=== PATIENT | female | born 1950 | race Asian ===

== ENCOUNTER 2020-12-25 12:31 | Outpatient (REF) | payer MEDICARE, SELFPAY ==
--- NOTE | ~2020-12-25 | MM_ITS ---
EXAMINATION: MM SCREENING DIGITAL BREAST TOMOSYNTHESIS, BILATERAL CLINICAL INFORMATION: Screening. Asymptomatic. The lifetime risk of breast cancer based on the Tyrer-Cuzick Model is 2.5%. COMPARISON: Mammography: October 03, 2019 and studies dating back to May 11, 2012 TECHNIQUE: Digital breast tomosynthesis is performed in both the craniocaudal and mediolateral oblique views along with computer-aided detection (CAD). Synthesized 2D images are generated from the tomosynthesis. Bilateral exaggerated craniocaudal views also performed. FINDINGS: There are scattered areas of fibroglandular density (ACR BI-RADS breast composition Category b). There are no significant masses, abnormal calcifications, or other abnormalities. MM/MM tomosynthesis screening BI IMPRESSION: There are no significant changes from prior study. ASSESSMENT: BI-RADS 1: Negative RECOMMENDATION: Routine annual mammography screening. This patient's information was entered into a reminder system with a target due date for their next mammogram.
== END 2020-12-25 12:32 | disposition home or self-care (01) ==
LOC: HO.MAMMO 12:31
PROVIDERS: PCP Internal Medicine; Visit Provider Internal Medicine
DX: Z12.31 Encounter for screening mammogram for malignant neoplasm of breast (principal)
CPT/HCPCS: 77063; 77067

== ENCOUNTER 2021-12-26 15:03 | Outpatient (REF) | payer MEDICARE, MEDICAID, SELFPAY ==
--- NOTE | ~2021-12-26 | MM_ITS ---
EXAMINATION: MM SCREENING DIGITAL BREAST TOMOSYNTHESIS, BILATERAL CLINICAL INFORMATION: Screening. Asymptomatic. The lifetime risk of breast cancer based on the Tyrer-Cuzick Model is 2%. COMPARISON: Mammography: 12/25/2020, 10/03/2019, 09/26/2018 TECHNIQUE: Digital breast tomosynthesis is performed in both the craniocaudal and mediolateral oblique views along with computer-aided detection (CAD). Synthesized 2D images are generated from the tomosynthesis. Additional bilateral MLO views are provided. FINDINGS: There are scattered areas of fibroglandular density (ACR BI-RADS breast composition Category b). There are no significant masses, abnormal calcifications, or other abnormalities. Parenchymal pattern is similar to prior studies. No developing density. No significant change. The axilla and skin contours are unremarkable. MM/MM tomosynthesis screening BI IMPRESSION: No mammographic evidence of malignancy. ASSESSMENT: BI-RADS 1: Negative RECOMMENDATION: Routine annual mammography screening. This patient's information was entered into a reminder system with a target due date for their next mammogram.
== END 2021-12-26 15:04 | disposition home or self-care (01) ==
LOC: HO.MAMMO 15:03
PROVIDERS: PCP Internal Medicine; Visit Provider Internal Medicine
DX: Z12.31 Encounter for screening mammogram for malignant neoplasm of breast (principal)
CPT/HCPCS: 77063; 77067

== ENCOUNTER 2023-01-13 08:21 | Outpatient (REF) | payer MEDICARE, MEDICAID, SELFPAY ==
--- NOTE | ~2023-01-13 | MM_ITS ---
EXAMINATION: MM SCREENING DIGITAL BREAST TOMOSYNTHESIS, BILATERAL CLINICAL INFORMATION: Screening. Asymptomatic. The lifetime risk of breast cancer based on the Tyrer-Cuzick Model is 2%. COMPARISON: Mammography: 12/26/2021, 12/25/2020, 10/03/2019 TECHNIQUE: Digital breast tomosynthesis is performed in both the craniocaudal and mediolateral oblique views along with computer-aided detection (CAD). Synthesized 2D images are generated from the tomosynthesis. FINDINGS: There are scattered areas of fibroglandular density (ACR BI-RADS breast composition Category b). There are no significant masses, abnormal calcifications, or other abnormalities. No architectural abnormality or developing density or significant change from prior studies. The axilla are unremarkable. MM/MM tomosynthesis screening BI IMPRESSION: No mammographic evidence of malignancy. ASSESSMENT: BI-RADS 1: Negative RECOMMENDATION: Routine annual mammography screening. This patient's information was entered into a reminder system with a target due date for their next mammogram.
== END 2023-01-13 08:22 | disposition home or self-care (01) ==
LOC: HO.MAMMO 08:21
PROVIDERS: PCP Internal Medicine; Visit Provider Internal Medicine
DX: Z12.31 Encounter for screening mammogram for malignant neoplasm of breast (principal)
CPT/HCPCS: 77063; 77067

== ENCOUNTER 2023-07-18 17:03 | Emergency (ER) | payer MEDICARE, MEDICAID, SELFPAY ==
--- NOTE | ~2023-07-18 | XR_ITS ---
EXAMINATION: XR CHEST, 2 VIEWS CLINICAL INFORMATION: Cough COMPARISON: 03/27/2010 TECHNIQUE: PA and lateral views of the chest were obtained. FINDINGS: Lungs are clear. No consolidation, pneumothorax, or pleural effusion. Cardiac and mediastinal contours are normal. Pulmonary vasculature is unremarkable. Trachea is midline. Status post right reverse total shoulder arthroplasty. No acute osseous findings. XR/XR chest 2V IMPRESSION: No acute cardiopulmonary findings.
--- NOTE | ~2023-07-18 | CT_ITS ---
EXAMINATION: CT ABDOMEN AND PELVIS WITH CONTRAST CLINICAL INFORMATION: Abdominal pain. COMPARISON: None available. TECHNIQUE: Multidetector volumetric images were obtained from the superior aspect of the liver through the pubic symphysis following administration 85 mL of Omnipaque 350 intravenous contrast. Sagittal and coronal reformatted images were obtained on the technologist's workstation. Oral contrast: No This CT examination was performed using dose optimization techniques as appropriate, variously including the following: *Automated exposure control *Adjustment of mA and/or kV according to patient size (this includes techniques or standardized protocols for targeted exams where dose is matched to indication/reason for exam; i.e. extremities or head) *Use of iterative reconstruction technique DLP: 344 mGy-cm FINDINGS: LUNG BASES: The visualized lung bases are unremarkable. LIVER, GALLBLADDER, AND BILIARY TREE: The liver is normal in size, shape, and attenuation. No focal hepatic lesion or biliary ductal dilatation is present. De Leon density in the gallbladder dependently, likely a gallstone. No gallbladder wall thickening or surrounding pericholecystic fluid. PANCREAS: Unremarkable. SPLEEN: Unremarkable. ADRENAL GLANDS: Unremarkable. KIDNEYS AND URETERS: There is a 2.8 cm fluid attenuation simple cyst in the left upper renal pole. No recommended imaging follow-up. The kidneys are normal in size, shape, and attenuation. No hydronephrosis, hydroureter, or calculi seen. No perinephric stranding. BLADDER: Unremarkable. GASTROINTESTINAL TRACT: Stomach, small bowel, and colon are normal in caliber. Mild colonic diverticulosis. No evidence of acute diverticulitis. No intraperitoneal free fluid or free air. Appendix is normal. ABDOMINAL WALL: No significant hernia is appreciated. LYMPH NODES: Normal. VASCULAR: Calcific atherosclerosis is present in the abdominal aorta and iliac arteries. No aneurysmal dilatation. PELVIC VISCERA: The uterus and adnexa are unremarkable. OSSEOUS STRUCTURES: Mild degenerative disc disease in the lower lumbar spine. Mild osteophytes in both hips and SI joints. The CT/CT abdomen pelvis w IV con IMPRESSION: 1. No acute intra-abdominal or intrapelvic abnormalities. 2. Cholelithiasis without evidence of acute cholecystitis. 3. Mild colonic diverticulosis without evidence of acute diverticulitis. Fleischner guidelines were followed.
--- NOTE | 2023-07-18 17:27 | ED.GENADULT ---
HPI - General Adult General Chief complaint: General Medical Stated complaint: kidney stones, dehydrated Time Seen by Provider: 07/18/23 17:58 Source: patient and family ( Daughter) Mode of arrival: ambulatory History of Present Illness HPI narrative: 72-year-old female who presents with her daughter with complaints of 2 weeks of feeling unwell with chills, decreased appetite, nausea and vomiting and had been seen at [facility] but then denied receive imaging studies and was discharged home. Related Data Previous Rx's Medication Instructions Recorded cefdinir 300 mg capsule 300 mg PO BID 7 days #14 caps 07/18/23 Allergies Allergy/AdvReac Type Severity Reaction Status Date / Time No Known Allergies Allergy Unverified 05/23/20 16:06 Review of Systems Review of Systems: Pertinent positives and negatives as stated in [facility] Past Medical History Source: nursing notes reviewed Medical History Diabetes mellitus, type 2 Social History Social History Smoked in Last 30 Days: No Use of substances other than those prescribed or required for medical reasons: No Advance Directives: Yes Advance Directives Information Provided: No Advance Directives on File: No Physical Exam ED Vital Signs: Vital Signs - 24 hr 07/18/23 17:28 07/18/23 18:11 07/18/23 20:00 Temperature 99.3 F Pulse Rate 80 76 79 Respiratory Rate 16 20 16 Blood Pressure 113/64 121/66 118/61 Pulse Oximetry 98 96 99 Oxygen Delivery Method Room Air Room Air Room Air BMI result Body Mass Index 23.2 VITAL SIGNS: Reviewed. GENERAL: Well developed, well nourished, in no acute distress. HEAD: Normocephalic/atraumatic EYES: PERRLA, EOMI EARS: Ext canals without abnormality, TMs non-bulging and non-erythematous NOSE: Nares patent bilateral OROPHARYNX: no oral lesions noted, posterior pharynx clear and non-erythematous without noted tonsillar enlargement/erythema/exudates NECK: Supple, no adenopathy LUNGS: Normal breath sounds. No adventitious sounds or accessory muscle use. SpO2<99> CARDIOVASCULAR: Regular rate and rhythm without noted murmurs ABDOMEN: Soft, mild tenderness to palpation on the right side, non-distended with bowel sounds. MUSCULOSKELETAL: No tenderness, deformities, or effusions noted on gross inspection. EXTREMITIES: No cyanosis, clubbing or edema. SKIN: Inspection of the skin reveals no rashes NEUROLOGIC: Alert and oriented x 4. Strength and sensation to light touch were grossly intact x 4. Course Course Course Narrative: RME performed by Kerrie Mcknight PA-C. Patient is a 72 year old assigned female at presenting to the emergency department feeling generally unwell with a sore throat, body aches, and gagging. Was seen 8 days ago at [facility] and was diagnosed with a kidney stone however, she left before they were officially seen at [facility]. Daughter in law at the bed side translating. States that the patient was actually told the next day by her PCP that she may have had a kidney stone as seen on lab work (?) and recommended she come to the ER but scheduled them for a follow up CT later this upcoming week. Labs and swabs ordered. Patient placed back in the waiting room pending room availability and results. Medications Administered Discontinued Medications Generic Name Dose Route Start Last Admin Trade Name Freq PRN Reason Stop Dose Admin Sodium Chloride 1,000 mls @ 999 mls/hr 07/18/23 19:30 07/18/23 21:12 Ns IV 07/18/23 20:30 Infused .Q1H1M GUY Infusion Piperacillin Sod/Tazobactam 50 mls @ 100 mls/hr 07/18/23 19:24 07/18/23 20:41 Sod 3.375 gm/ Sodium Chloride IV 07/18/23 19:53 Infused ONCE ONE Infusion Iohexol 100 ml 07/18/23 19:54 07/18/23 19:54 Iohexol 350 Mg/Ml 100 Ml Infus..Btl IV 07/18/23 19:55 85 ml ONCE ONE Administration Medical Decision Making Medical Decision Making MDM Narrative: 72-year-old female with history and clinical presentation, DDX: viral illness, UTI, renal colic, pyelonephritis. I reviewed all investigations and hematologic indices demonstrate a leukocytosis without left shift and a normocytic anemia without history or clinical findings of bleeding. There is no thrombocytopenia. Coagulation studies are all mildly elevated and of unclear significant as patient is not on any anticoagulation. Chemistry indices do not demonstrate an LANDON and there is no electrolyte or liver enzyme derangements other than a mildly elevated AST, alkaline phosphatase is noted to be elevated -548. unsure why high sensitivity troponin was ordered but it is detectable but patient has no complaints of chest pain. Urinalysis demonstrates wbc's as well as rbc's and CT scan is negative for acute intra-abdominal pathologies. Viral testing is negative for influenza/ RSV/ COVID. Rapid strep is negative. Chest x-ray not significant for infiltrate and otherwise my interpretation is in agreement with radiology's impression. EKG does not have any acute findings. My interpretation is that patient likely has a pyelonephritis and received initial antibiotics here in the emergency room and was discharged with remaining course. All results and findings were discussed with the patient and her daughter at bedside Differential Diagnosis Differential Diagnoses: The differential diagnosis associated with the presentation includes please see the discussion above Admission/Observation Consideration of admission/observation: Escalation of care including admission/observation considered please see the discussion above Lab Data MDM Lab Attestation statement: I reviewed the patient's lab results. please see the discussion above 07/18/23 17:52 07/18/23 17:52 Labs: Lab Results 07/18/23 07/18/23 07/18/23 Range/Units 17:52 18:26 21:36 WBC 10.9 H (4.8-10.8) X10*3/uL RBC 3.46 L (4.20-5.50) X10*6/uL Hgb 9.3 L (12.0-16.0) g/dl Hct 30.7 L (37.0-47.0) % MCV 88.7 (80.0-98.0) fL MCH 26.9 L (27.0-33.0) pg MCHC 30.3 L (31.0-35.0) g/dl RDW 13.3 (11.0-16.0) % Plt Count 276 (160-400) X10*3/uL MPV 11.3 (9.4-12.3) fL Immature Gran % (Auto) 1.0 H (0.0-0.4) % Neut % (Auto) 73.0 (45-73) % Lymph % (Auto) 11.3 L (20-40) % Hampton % (Auto) 10.2 (2-11) % Eos % (Auto) 4.0 (0-4) % Baso % (Auto) 0.5 (0-2) % Lymph # (Auto) 1.2 (1.2-4.9) X10*3/uL Hampton # (Auto) 1.1 (0.1-1.2) X10*3/uL Eos # (Auto) 0.4 (0.0-0.4) X10*3/uL Baso # (Auto) 0.1 (0.0-0.2) X10*3/uL Abs Immat Gran (auto) 0.11 H (0.00-0.03) X10*3/uL Absolute Neuts (auto) 7.9 (2.0-8.3) x10*3/uL Absolute Nucleated RBC 0.000 (0.0-0.012) X10*3/uL Nucleated RBC % (auto) 0.0 (0.0-0.2) /100WBC PT 14.1 H (11.1-13.3) SEC INR 1.2 H (0.9-1.1) APTT 41.2 H (26.0-36.4) SEC Sodium 134 L (135-145) mmol/L Potassium 4.2 (3.3-5.1) mmol/L Chloride 103 (96-108) mmol/L Carbon Dioxide 24 (22-29) mmol/L Anion Gap 11 L (12-20) BUN 15 (9-16) mg/dL Creatinine 0.88 (0.5-1.4) mg/dL Estim Creat Clear Calc 43.3 Estimated GFR > 60 Random Glucose 121 H (60-115) mg/dL Calcium 9.6 (8.4-10.2) mg/dL Magnesium 2.1 (1.6-2.6) mg/dL Total Bilirubin 0.4 (0.0-1.0) mg/dL AST 106 H (5-31) U/L ALT < 5 (0-31) U/L Alkaline Phosphatase 548 H (39-117) U/L Troponin I High Sens 4.3 (<3.5-17.0) ng/L Total Protein 7.7 (6.5-8.0) g/dL Albumin 3.2 L (3.5-5.0) g/dL Urine Color Yellow Urine Appearance Clear Urine pH 6.5 (5.0-9.0) Ur Specific Blanco >= 1.030 H (1.005-1.025) Urine Protein Negative (Neg-Trace) mg/dL Urine Glucose (UA) >=1000 H (Negative) mg/dL Urine Ketones Negative (Negative) mg/dL Urine Blood Trace H (Negative) Urine Nitrite Negative (Negative) Ur Leukocyte Esterase Small (1+) H (Negative) Urine RBC 3-5 H (0-2) /HPF Urine WBC 21-50 H (0-5) /HPF Ur Squamous Epith Cells 3-5 (0-2) /HPF Urine Bacteria None Seen (None Seen) Hyaline Casts 0-2 (0-2) /LPF Influenza Type A (PCR) NEGATIVE (Negative) Influenza Type B (PCR) NEGATIVE (Negative) RSV RNA Qual (PCR) NEGATIVE (Negative) SARS-CoV-2 RNA (RT-PCR) NEGATIVE (Negative) S. pyogenes GrpA KEYLA Negative (Negative) Independent Interpretation I performed an independent interpretation of an: EKG Interpretation: normal sinus rhythm, HR - 79, there is no STEMI, AL/ QRS /QTC is within normal limits. Radiology Impression Discussion of test interpretation with radiology: I have reviewed the radiologist's reading. Radiologist Impression: Please see the discussion above Chronic Conditions Patient?s care impacted by: Diabetes Critical Care Time Critical Care Time Critical Care Time: Yes Total Critical Care Time: 30 Attestation: I personally attest to this time spent taking care of the patient. Discharge Plan Discharge Clinical Impression: Pyelonephritis Patient Disposition: Home, Self-Care Instructions: Kidney Infection (ED) Additional Instructions: 1. Resume all home medications as prescribed. 2. Complete the entire course of antibiotics as prescribed. 3. Follow-up with your primary care doctor by calling the office tomorrow morning. Return to the ER for any worsening symptoms. Prescriptions: New cefdinir 300 mg capsule 300 mg PO BID 7 Days Qty: 14 0RF Referrals: Elizabeth Sterling MD [Primary Care Provider] -
[2023-07-18 17:28] VITALS: BP 113/64; PULSE 80; RESP 16; TEMP 37.4; O2SAT 98; BMI 23.2
--- NOTE | 2023-07-18 17:29 | ECG_ITS ---
Test Reason : FEELING UNWELL Blood Pressure : / mmHG Vent. Rate : 079 BPM Atrial Rate : 079 BPM P-R Int : 120 ms QRS Dur : 074 ms QT Int : 368 ms P-R-T Axes : 049 028 053 degrees QTc Int : 421 ms Normal sinus rhythm RSR' or QR pattern in V1 suggests right ventricular conduction delay Otherwise normal ECG When compared with ECG of 27-MAR-2010 06:52, QT has shortened ST no longer depressed in Inferior leads Lateral leads Referred By: Kerrie Mcknight Electronically Signed By:TRENA WILSON MD
[2023-07-18 18:01] LABS: MANUAL DIFF FLAG NO
--- OUTSIDE RECORDS SUMMARY | 2023-07-18 18:03 | XMS_ITS | Continuity of Care Document ---
Author Name Unknown Organization [facility] Adult Address [address] [place] [address]- Care Team Providers Care Laboratory Phlebotomist Name Role Phone Chio MUSE, Elizabeth Primary Care Physician Encounter [facility] Date(s): 08/23/22 - 09/22/22 [facility] [address] [place] [address]- Allergies, Adverse Reactions, Alerts No Known Allergies Immunizations Given and Recorded Vaccine Date Status Refusal Reason influenza virus vaccine, inactivated 07/15/22 Prem rded influenza virus vaccine, inactivated 07/09/21 Prem rded influenza virus vaccine, inactivated 1 06/24/18 Gi zeke influenza virus vaccine, inactivated 2 07/17/17 Gi zeke influenza virus vaccine, inactivated 06/07/17 Prem rded influenza virus vaccine, inactivated 3 06/22/16 Gi zeke influenza virus vaccine, inactivated 06/26/15 Give n influenza virus vaccine, inactivated 06/14/14 Give n influenza virus vaccine, inactivated 06/28/13 Give n influenza virus vaccine, inactivated 05/13/12 Give n SARS-CoV-2 mRNA ([id number]) vax 12/23/21 Recorded SARS-CoV-2 (COVID-19) Ad26 vaccine 12/14/20 Record ed Influenza Virus Vaccine (oldterm) 4 06/01/20 Recor ded Influenza Virus Vaccine (oldterm) 5 06/01/20 Recor ded Influenza Virus Vaccine (oldterm) 07/03/19 Recorde d pneumococcal 23-valent vaccine 03/01/18 Given pneumococcal 13-valent vaccine 12/15/16 Given tetanus/diphtheria/pertussis, acel(Tdap) 10/25/13 Given Diphth-Tetanus Toxoids Adsorbed(oldterm) 02/18/07 Given [facility] 3[facility] Note[facility] 4Result Comment: [facility] 5Result Comment: [facility] Medications acetaminophen 325 mg oral tablet 975 mg, 3, tablet, By Mouth, Every 8 hours, Refills 0, Maintenance, 08/26/21 12:18:00 EST, Partial fill upon patient request if the prescription is for a schedule II opioid drug. Start Date: 08/26/21 Status: Ordered aspirin 81 mg oral delayed release tablet 1 tablet = 81 mg, By Mouth, Daily, 0 Refills, Maintenance, 02/11/22 14:51:00 EDT, Partial fill uponpatient request if the prescription is for a schedule II opioid drug. Start Date: 02/11/22 Status: Ordered atorvastatin 40 mg oral tablet 1 tablet, By Mouth, Daily, # 90 Unknown, 1 Refills, Maintenance, 08/22/22 20:37:00 EST, [facility], 148.5, cm, 08/21/22 9:55:00 EST, Height, 55.5, kg, 08/26/21 10:10:00 EST, Dry Weight Start Date: 08/22/22 Status: Ordered docusate sodium 100 mg oral capsule 100 mg, 1, capsule, By Mouth, 2 times a day, Refills 0, Maintenance, 08/26/21 12:18:00 EST, Partialfill upon patient request if the prescription is for a schedule II opioid drug. Start Date: 08/26/21 Status: Ordered hydrochlorothiazide-lisinopril 12.5 mg-20 mg oral tablet 1 tablet, By Mouth, Daily, # 90 tablet, 1 Refills, Maintenance, 08/22/22 20:37:00 EST, [facility], 90, 1 tablet By Mouth Daily, 148.5, cm, 08/21/22 9:55:00 EST, Height, 55.5, kg, 08/26/21 10:10:00 EST, Dry Weight Start Date: 08/22/22 Status: Ordered Jardiance 25 mg oral tablet 1 tablet = 25 mg, By Mouth, Daily in AM, # 90 tablet, 3 Refills, Maintenance, 02/11/22 14:50:00 EDT, Tablet, [facility], Partial fill upon patient request if the prescription is fora schedule II opioid drug., 148.4, cm, 02/11/22 14:05:0... Start Date: 02/11/22 Status: Ordered One Touch Delica Lancets See Instructions, # 1 each, Refills 5, Tot. Refills 5, Maintenance, USE TO CHECK GLUCOSE ONCE HGRIVP58.9, 02/12/22 11:58:00 EDT, Supply, 148.4, cm, 02/11/22 14:05:00 EDT, Height, 55.5, kg, 08/26/21 10:10:00 EST, Dry Weight Start Date: 02/12/22 Status: Ordered One Touch Ultra 2 Glucose Meter See Instructions, # 1 each, Maintenance, USE TO CHECK GLUCOSE ONCE DAILY DX E11.9, 08/18/21 13:49:00 EST, Supply, 148.4, cm, 08/18/21 11:34:00 EST, Height Start Date: 08/18/21 Status: Ordered One Touch Ultra Test Strips See Instructions, # 100 each, Refills 5, Tot. Refills 5, Maintenance, USE TO CHECK GLUCOSE ONCE DAILY DX E11.9, 08/18/21 13:49:00 EST, Supply, 148.4, cm, 08/18/21 11:34:00 EST, Height Start Date: 08/18/21 Status: Ordered Vitamin D3 50,000 intl units oral capsule 1 capsule = 1,250 mcg, By Mouth, Every week, # 12 capsule, 0 Refills, Maintenance, 08/23/22 8:38:00EST, Capsule, [facility], Partial fill upon patient request if the prescription is for a schedule II opioid drug., 148.5, cm, 08/21/22 9:... Start Date: 08/23/22 Status: Ordered Problem List Condition Confirmation Course Effective Dates Status H ealth Status Informant Chronic abdominal pain Confirmed 1995 Active Chronic right shoulder pain Confirmed Active Diabetes as of 12/20/17 Confirmed Active Fibromyalgia syndrome Confirmed Active Headache Confirmed 1995 Active Heartburn Confirmed Active Hyperlipidemia 272.4 Confirmed Active HYPERTENSION Confirmed 2008 Active Osteopenia Confirmed 2019 Active Sleep disturbance Confirmed 1995 Active Social History Social History Type Response Smoking Status Never smoker entered on: 12/30/15 Sex Patient Care team information Care Team Personnel Name: Elizabeth Barroso MD Position: [facility] Primary Care Physician Member Role: PCP Address: Address: [address] [place] [address] [address] [place] [address]- [place] Care Team Related Persons Name: CAIO VELASQUEZ Address: [address] [place] [address] Name: DANIELA MADRIGAL Address: [address] [address] Name: CAIO DUNN Address: [address] [place] [address]
--- OUTSIDE RECORDS SUMMARY | 2023-07-18 18:03 | XMS_ITS | Continuity of Care Document ---
Author Name Unknown Organization [facility] ter Address [address] [place] [id number]- Care Team Providers Care Detail Maker And Fitter Name Role Phone Chio MUSE, Elizabeth Primary Care Physician Encounter [facility] Date(s): 08/18/19 - 08/18/[address] [address]- [facility] Attending Physician: Elizabeth Barroso MD Allergies, Adverse Reactions, Alerts Substance Reaction Severity Status NKA Active Immunizations Given and Recorded Vaccine Date Status Refusal Reason Influenza Virus Vaccine (oldterm) 07/03/19 Recorde d influenza virus vaccine, inactivated 1 06/24/18 Gi zeke influenza virus vaccine, inactivated 2 07/17/17 Gi zeke influenza virus vaccine, inactivated 3 06/22/16 Gi zeke influenza virus vaccine, inactivated 06/26/15 Give n influenza virus vaccine, inactivated 06/14/14 Give n influenza virus vaccine, inactivated 06/28/13 Give n influenza virus vaccine, inactivated 05/13/12 Give n pneumococcal 23-valent vaccine 03/01/18 Given pneumococcal 13-valent vaccine 12/15/16 Given tetanus/diphtheria/pertussis, acel(Tdap) 10/25/13 Given Diphth-Tetanus Toxoids Adsorbed(oldterm) 02/18/07 Given [facility] 3[facility] Medications aspirin 81 mg oral tablet 1 tablet = 81 mg, By Mouth, Daily, 0 Refills, Maintenance, 03/01/18 13:34:30 EDT Start Date: 03/01/18 Status: Ordered atorvastatin 40 mg oral tablet 1 tablet = 40 mg, By Mouth, Daily, # 30 tablet, 5 Refills, Maintenance, Tablet, Route to Pharmacy Electronically, [id number], [facility] Start Date: 02/17/19 Status: Ordered ibuprofen 800 mg oral tablet 800 mg, 1, tablet, By Mouth, 3 times a day, with food or milk, # 90 tablet, Refills 0, Tot. Refills0, Maintenance, 03/23/18 13:05:21 EDT, Route to Pharmacy Electronically, [id number], [facility] Start Date: 03/23/18 Stop Date: 04/22/18 Status: Ordered Zestoretic 12.5 mg-20 mg oral tablet 1 tablet, By Mouth, Daily, # 30 tablet, 5 Refills, Maintenance, 02/17/19 15:09:22 EDT, Tablet, 1 tablet By Mouth Daily,x30 days Start Date: 02/17/19 Stop Date: 08/16/19 Status: Ordered Problem List Condition Effective Dates Status Health Status Inform ant Chronic abdominal pain(Confirmed) 1995 Active Chronic right shoulder pain(Confirmed) Active Diabetes as of 12/20/17(Confirmed) Active Fibromyalgia syndrome(Confirmed) Active Headache(Confirmed) 1995 Active Hyperlipidemia 272.4(Confirmed) Active HYPERTENSION(Confirmed) 2008 Active Sleep disturbance(Confirmed) 1995 Active Social History Social History Type Response Smoking Status Never smoker entered on: 12/30/15 Sex
--- OUTSIDE RECORDS SUMMARY | 2023-07-18 18:03 | XMS_ITS | Continuity of Care Document ---
Author Name Unknown Organization [facility] ter Address [address] [place] [id number]- Care Team Providers Care Piano Case And Bench Assembler Name Role Phone Chio MUSE, Elizabeth Primary Care Physician [place] [facility] [place] - 08/28/[address] [address] Attending Physician: Yari Echevarria MD, V Referring Physician: Yari Echevarria MD, V Allergies, Adverse Reactions, Alerts Substance Reaction Severity Status NKA Active Immunizations Given and Recorded Vaccine Date Status Refusal Reason influenza virus vaccine, inactivated 07/09/21 Prem rded [...] virus vaccine, inactivated 05/13/12 Give n SARS-CoV-2 (COVID-19) Ad26 vaccine 12/14/20 Record ed [...] drug. Start Date: 08/26/21 Status: Ordered aspirin 325 mg oral delayed release tablet 325 mg, By Mouth, Daily, Refills 0, Maintenance, 08/26/21 12:18:00 EST, Partial fill upon patient request if the prescription is for a schedule II opioid drug. Start Date: 08/26/21 Status: Ordered atorvastatin 40 mg oral tablet 1 tablet = 40 mg, By Mouth, Daily, # 90 tablet, 3 Refills, Maintenance, 07/30/21 10:36:00 EST, Tablet, [facility], 148.4, cm, 07/30/21 10:29:00 EST, Height Start Date: 07/30/21 Status: Ordered docusate sodium 100 mg oral capsule 100 mg, 1, capsule, By Mouth, 2 times a day, Refills 0, Maintenance, 08/26/21 12:18:00 EST, Partialfill upon patient request if the prescription is for a schedule II opioid drug. Start Date: 08/26/21 Status: Ordered Jardiance 10 mg oral tablet 1 tablet = 10 mg, By Mouth, Daily in AM, # 30 tablet, 5 Refills, Maintenance, 08/18/21 12:00:00 EST, Tablet, [facility], Partial fill upon patient request if the prescription is fora schedule II opioid drug., 148.4, cm, 08/18/21 11:34:0... Start Date: 08/18/21 Status: Ordered NuLYTELY with Flavor Packs oral powder for reconstitution 240 mL, By Mouth, Every 10 minutes, Split prep method CAN SUBSTITUTE WITH ANY PEG 3350 SOLUTION AVAILABLE, # 1 each, 0 Refills, Acute 01/21/22 6:30:00 EDT, 01/20/22 17:00:00 EDT, REC Powder, [facility], test date 01/21/22, 240 mL By Mout... Start Date: 01/20/22 Stop Date: 01/21/22 Status: Ordered One Touch Ultra 2 Glucose [...] Start Date: 08/18/21 Status: Ordered One Touch UltraSoft Lancets See Instructions, # 100 each, Refills 5, Tot. Refills 5, Maintenance, USE TO CHECK GLUCOSE ONCE DAILY DX E11.9, 08/18/21 13:49:00 EST, Supply, 148.4, cm, 08/18/21 11:34:00 EST, Height Start Date: 08/18/21 Status: Ordered oxyCODONE 5 mg oral tablet 10 mg, 2, tablet, By Mouth, Every 4 hours, PRN, Refills 0, Tot. Refills 0, Maintenance, Pain , Severe, 08/26/21 12:18:00 EST, Partial fill upon patient request if the prescription is for a schedule II opioid drug. Start Date: 08/26/21 Status: Ordered oxyCODONE 5 mg oral tablet 5 mg, 1, tablet, By Mouth, Every 4 hours, PRN, Refills 0, Tot. Refills 0, Maintenance, Pain , Mild,08/26/21 12:18:00 EST, Partial fill upon patient request if the prescription is for a schedule II opioid drug. Start Date: 08/26/21 Status: Ordered Zestoretic 12.5 mg-20 mg oral tablet 1 tablet, By Mouth, Daily, # 90 tablet, 3 Refills, Maintenance, 07/30/21 10:36:00 EST, Tablet, [facility], 1 tablet By Mouth Daily, 148.4, cm, 07/30/21 10:29:00 EST, Height Start Date: 07/30/21 Status: Ordered Problem List Condition Effective Dates Status Health Status Inform ant Chronic abdominal pain(Confirmed) 1995 Active Chronic right shoulder pain(Confirmed) Active Diabetes as of 12/20/17(Confirmed) Active Fibromyalgia syndrome(Confirmed) Active Headache(Confirmed) 1995 Active Heartburn(Confirmed) Active Hyperlipidemia 272.4(Confirmed) Active HYPERTENSION(Confirmed) 2008 Active Osteopenia(Confirmed) 2020 Active Sleep disturbance(Confirmed) 1995 Active Social History Social History Type Response Smoking Status Never smoker entered on: 12/30/15 Sex
--- OUTSIDE RECORDS SUMMARY | 2023-07-18 18:04 | XMS_ITS | Continuity of Care Document ---
Author Name Unknown Organization [facility] Adult Address [address] [place] [address]- Care Team Providers Care Orchestra Teacher Name Role Phone Chio MUSE, [place] Primary Care Physician Encounter [facility] Date(s): 03/16/23 - 04/15/23 [facility] Adult [address] [place] [address]- Allergies, Adverse Reactions, Alerts No Known Allergies [...] vaccine, inactivated 05/13/12 Give n SARS-CoV-2 mRNA ([id number]) vax 12/23/21 Recorded SARS-CoV-2 (COVID-19) Ad26 vaccine [...] Daily, # 90 tablet, 1 Refills, Maintenance, 02/25/23 10:38:00 EDT, [facility], 148.5, cm, 12/14/22 15:04:00 EDT, Height, 55.5, kg, 08/26/21 10:10:00 EST, Dry Weight Start Date: 02/25/23 Status: Ordered docusate sodium 100 mg oral capsule 100 mg, 1, capsule, By Mouth, 2 times a day, Refills 0, Maintenance, 08/26/21 12:18:00 EST, Partialfill upon patient request if the prescription is for a schedule II opioid drug. Start Date: 08/26/21 Status: Ordered Fosamax 70 mg oral tablet 1 tablet = 70 mg, By Mouth, Every week, # 12 tablet, 1 Refills, Maintenance, 03/05/23 16:24:00 EDT,Tablet, [facility], Partial fill upon patient request if the prescription is for a schedule II opioid drug., 148.5, cm, 03/05/23 15:51:00... Start Date: 03/05/23 Status: Ordered hydrochlorothiazide-lisinopril 12.5 mg-20 mg oral tablet 1 tablet, By Mouth, Daily, # 90 tablet, 1 Refills, Maintenance, 02/25/23 10:39:00 EDT, [facility], 90, 1 tablet By Mouth Daily, 148.5, cm, 12/14/22 15:04:00 EDT, Height, 55.5, kg, 08/26/21 10:10:00 EST, Dry Weight Start Date: 02/25/23 Status: Ordered Jardiance 25 mg oral tablet 1 tablet, By Mouth, Daily in AM, # 90 tablet, 3 Refills, Maintenance, 02/25/23 10:39:00 EDT, [facility], 148.5, cm, 12/14/22 15:04:00 EDT, Height, 55.5, kg, 08/26/21 10:10:00 EST, Dry Weight Start Date: 02/25/23 Status: Ordered One Touch Delica Lancets See Instructions, # 1 each, Refills 5, Tot. Refills 5, Maintenance, USE TO CHECK GLUCOSE ONCE [id number], 02/12/22 11:58:00 EDT, Supply, 148.4, cm, 02/11/22 [...] Start Date: 08/18/21 Status: Ordered Vitamin D3 1000 intl units oral capsule 1 capsule = 25 mcg, By Mouth, Daily, # 100 capsule, 1 Refills, Maintenance, 11/24/22 17:43:00 EDT, Capsule, [facility], Partial fill upon patient request if the prescription is for a schedule II opioid drug., 148.5, cm, 11/24/22 16:34:00... Start Date: 11/24/22 Status: Ordered Problem List Condition Confirmation Course Effective Dates Status H ealth Status Informant Chronic abdominal pain Confirmed 1995 Active Chronic right shoulder pain Confirmed Active Diabetes as of 12/20/17 Confirmed Active Fibromyalgia syndrome Confirmed Active Headache Confirmed 1995 Active Heartburn Confirmed Active Hyperlipidemia 272.4 Confirmed Active HYPERTENSION Confirmed 2008 Active Osteopenia Confirmed 2019 Active Osteoporosis Confirmed Active Sleep disturbance Confirmed 1995 Active Social History Social History Type Response Smoking Status Never smoker entered on: 12/30/15 Sex Patient Care team information Care Team Personnel Name: Elizabeth Barroso MD Position: [facility] Physician - Primary Care Member Role: PCP [facility] [address] [place] [address]- Care Team Related Persons Name: CAIO VELASQUEZ Address: home [address] [place] [address] Name: DANIELA MADRIGAL Address: [address] [address] Name: CAIO DUNN Address: home [address] [place] [address]
--- OUTSIDE RECORDS SUMMARY | 2023-07-18 18:04 | XMS_ITS | Continuity of Care Document ---
Author Name Unknown Organization [facility] ter Address [address] [place] [address]- Care Team Providers Care General Education Professor Name Role Phone Chio MUSE, Elizabeth Primary Care Physician [place] [facility] [place] - 08/26/[address] [address]- Discharge Disposition: A-D/C Home Attending Physician: Yari Echevarria MD, V Admitting Physician: Yari Echevarria MD, V Referring Physician: [...] opioid drug. Start Date: 08/26/21 Status: Ordered HYDROmorphone Inj (PACU ONLY) 0.2 mg, Injection, IV Push Slowly, Every 5 minutes, up to a maximum of 2 mg, Hold for: RR less than8 OR Sedation Scale of C, PRN for Pain , Severe, Routine, 08/26/21 12:08:00 EST Start Date: 08/26/21 Stop Date: 09/02/21 Status: Ordered Jardiance 10 mg oral tablet [...] Hyperlipidemia 272.4(Confirmed) Active HYPERTENSION(Confirmed) 2008 Active Osteopenia(Confirmed) 2019 Active Sleep disturbance(Confirmed) 1995 Active Results Radiology Reports * Exam Date Time Procedure Performing Provider Status 08/26/21 12:51 PM Shoulder 1 View Right Therese Morris; Ryan (Verified) Notes: (Shoulder 1 View Right) Reason For Exam: S/p Right reverse total shoulder arthroplasty;Other: RESULT: Shoulder 1 View Right Shoulder 1 View Right, 1 views HISTORY: Right reverse total shoulder arthroplasty. COMPARISON: Radiograph 09/11/2017. FINDINGS: No acute osseous abnormality. No aggressive radiolucent or sclerotic lesions. Reverse right total shoulder arthroplasty. Overlapping of the humeral and glenoid components. No hardware fracture or periprosthetic loosening. Partially visualized right lung is clear. IMPRESSION: Overlapping of the glenoid and humeral components of reversed right total shoulder arthroplasty in this single projection . No hardware fracture or periprosthetic loosening. Consider scapular/axial projections to further evaluate positioning. I have personally reviewed the images and I agree with this report. WSN: [id number] Ordering Physician: Yari Echevarria V Dictated By: Chris Kay MD Dictated Date/Time: 08/26/21 1:37 pm Reviewed By: Dannie Briscoe MD Signed By: Dannie Briscoe MD Signed Date/Time: 08/26/21 1:42 pm Transcribed By: MYRA Transcribed Date/Time: 08/26/21 12:57 pm Vital Signs Most recent to oldest [Reference Range]: 1 2 3 Height 148.4 cm (08/26/21 10:10 AM) 148.4 cm (08/21/21 12:23 PM) Weight 55.5 kg (08/26/21 10:10 AM) 55.8 kg (08/21/21 12:23 PM) Oxygen Saturation [94-100 %] 99 % (08/26/21 1:45 PM) 99 % (08/26/21 1:30 PM) 99 % (08/26/21 1:15 PM) Pulse Rate [55-90 bpm] 68 bpm (08/26/21 10:10 AM) Body Mass Index [18.5-24.99] 25.2 *H* (08/26/21 10:10 AM) 25.34 *H* (08/21/21 12:23 PM) Blood Pressure [90-138/55-84 mm Hg] 117/57mm Hg (08/26/21 1:45 PM) 109/48mm Hg (08/26/21 1:30 PM) 107/46mm Hg (08/26/21 1:15 PM) Respiratory Rate [16-30 br/min] 15 br/min *L* (08/26/21 1:50 PM) 14 br/min *L* (08/26/21 1:30 PM) 15 br/min *L* (08/26/21 1:15 PM) Temperature [96.8-100.4 DegF] 97.2 DegF (08/26/21 1:45 PM) 97.1 DegF (08/26/21 12:15 PM) 99.2 DegF (08/26/21 10:10 AM) Liters per Minute 4 L/min (08/26/21 12:30 PM) 4 L/min (08/26/21 12:15 PM) 2 L/min (08/26/21 10:30 AM) Mode of Delivery (Oxygen) Room air (08/26/21 1:45 PM) Room air (08/26/21 12:45 PM) Simple face mask (08/26/21 12:30 PM) Blood pressure sites Arm, left (08/26/21 1:45 PM) Arm, left (08/26/21 1:30 PM) Arm, left (08/26/21 1:15 PM) Temperature Route Temporal (08/26/21 1:45 PM) Temporal (08/26/21 12:15 PM) Temporal (08/26/21 10:10 AM) Dry Weight 55.5 kg (08/26/21 10:10 AM) 55.8 kg (08/21/21 12:23 PM) Weight Obtained Via Standing scale (08/26/21 10:10 AM) Patient/family stated (08/21/21 12:23 PM) Dry Weight Obtained Via Standing scale (08/26/21 10:10 AM) Social History Social History Type Response Smoking Status Never smoker entered on: 12/30/15 Sex
--- OUTSIDE RECORDS SUMMARY | 2023-07-18 18:04 | XMS_ITS | Continuity of Care Document ---
Author Name Unknown Organization [facility] Address [address] [place] [address]- Care Team Providers Care Combination Machine Tender Name Role Phone Elizabeth Barroso MD Primary Care Physician [place] [facility] [place] 08[place]28/22 [facility] [address] [place] [address]- Encounter Diagnosis Well adult exam(Discharge Diagnosis) - 08/21/22 Diabetes as of 12/20/17(Discharge Diagnosis) - 08/21/22 HYPERTENSION(Discharge Diagnosis) - 08/21/22 Hyperlipidemia 272.4(Discharge Diagnosis) - 08/21/22 Osteopenia(Discharge Diagnosis) - 08/21/22 Attending Physician: Elizabeth Barroso MD Allergies, Adverse Reactions, Alerts No Known Allergies Immunizations Given and Recorded Vaccine Date Status Refusal Reason influenza virus vaccine, inactivated 07/15/22 Prem rded influenza virus vaccine, inactivated 07/09/21 Prem rded influenza virus vaccine, inactivated 1 06/24/18 Gi zeke influenza virus vaccine, inactivated 2 07/17/17 Gi zeke influenza virus vaccine, inactivated 06/07/17 Rpem rded influenza virus vaccine, inactivated 3 06/22/16 Gi zeke influenza virus vaccine, inactivated 06/26/15 Give n influenza virus vaccine, inactivated 06/14/14 Give n influenza virus vaccine, inactivated 06/28/13 Give n influenza virus vaccine, inactivated 05/13/12 Give n SARS-CoV-2 mRNA (juvhboz-[id number]) vax 12/23/21 Recorded SARS-CoV-2 (COVID-19) Ad26 vaccine [...] 5, Maintenance, USE TO CHECK GLUCOSE ONCE [id number], 02/12/22 11:58:00 EDT, Supply, 148.4, cm, 02/11/22 [...] 2019 Active Sleep disturbance Confirmed 1995 Active Diagnosis Diagnosis Type Effective Dates Health Status Clinical Service Informant Well adult exam Discharge Diagnosis 08/21/22 Diabetes as of 12/20/17 Discharge Diagnosis 08/21/22 HYPERTENSION Discharge Diagnosis 08/21/22 Hyperlipidemia 272.4 Discharge Diagnosis 08/21/22 Osteopenia Discharge Diagnosis 08/21/22 Vital Signs Most recent to oldest [Reference Range]: 1 Height 148.5 cm (08/21/22 9:55 AM) Weight 54.7 kg (08/21/22 9:55 AM) Oxygen Saturation [94-100 %] 99 % (08/21/22 9:55 AM) Pulse Rate [55-90 bpm] 68 bpm (08/21/22 9:55 AM) Body Mass Index [18.5-24.99 kg/m2] 24.8 kg/m2 (08/21/22 9:55 AM) Blood Pressure [90-138/55-84 mm Hg] 102/ 69mm Hg (08/21/22 9:55 AM) Temperature [96.8-100.4 DegF] 97.5 DegF (08/21/22 9:55 AM) Mode of Delivery (Oxygen) Room air (08/21/22 9:55 AM) Blood pressure sites Arm, left (08/21/22 9:55 AM) Temperature Route Oral (08/21/22 9:55 AM) Social History Social History Type Response Smoking Status Never smoker entered on: 12/30/15 Sex Note * Kiana Shields: PERFORM, SIGN, VERIFY Event Display: Patient Education/Instruction Authored Date: [id number] [facility] *[facility] [place] [facility] Clinical Summary Name MANRON Age 71 Years 1950 PCP Elizabeth Barroso MD PCP Visit Date 08/21/2022 09:41:00 Additional Instructions: Scheduled Appointments?? Future Appointments ?No Future Appointments Scheduled Follow-Up Instructions ?? With: Address: When: Elizabeth Barroso MD Within 1 year With: Address: When: Ez Barroso MDlis Within 6 months Diagnosis Other specified disorders of bone density and structure, unspecified site; Type 2 diabetes mellituswithout complications; Encounter for general adult medical examination without abnormal findings; Hyperlipidemia, unspecified; Essential (primary) hypertension Medications: Please continue your medications until treatment is completed or stopped by your provider. Discuss any questions related to medications with your provider. Medications to Continue with No Changes These medications were not printed or sent to your pharmacy Acetaminophen (acetaminophen 325 mg oral tablet) 3 tab(s) Oral every 8 hours. Next Dose: Aspirin (aspirin 81 mg oral delayed release tablet) 1 tab(s) Oral Daily. Next Dose: Atorvastatin (atorvastatin 40 mg oral tablet) 1 tab(s) Oral Daily. Refills: 3. Next Dose: Docusate (docusate sodium 100 mg oral capsule) 1 capsule Oral twice a day. Next Dose: Durable Medical Equipment (One Touch Delica Lancets) USE TO CHECK GLUCOSE ONCE DAILY E11.9. Refills: 5. Next Dose: Durable Medical Equipment (One Touch Ultra 2 Glucose Meter) USE TO CHECK GLUCOSE ONCE DAILY DX E11.9. Refills: 0. Next Dose: Durable Medical Equipment (One Touch Ultra Test Strips) USE TO CHECK GLUCOSE ONCE DAILY DX E11.9. Refills: 5. Next Dose: empagliflozin (Jardiance 25 mg oral tablet) 1 tab(s) Oral Daily in the morning. Refills: 3. Next Dose: Hydrochlorothiazide-Lisinopril (Zestoretic 12.5 mg-20 mg oral tablet) 1 tab(s) Oral Daily. Refills:3. Next Dose: Allergy Info:?? NKA Medications Given This Visit Future Orders ?Cholesterol Total? Order Date:08/21/22?- Complete on or after?08/21/22 ?Direct LDL? Order Date:08/21/22?- Complete on or after?08/21/22 ?HDL Cholesterol? Order Date:08/21/22?- Complete on or after?08/21/22 ?ALT? Order Date:08/21/22?- Complete on or after?08/21/22 ?Vitamin D 25 Hydroxy Level? Order Date:08/21/22?- Complete on or after?08/21/22 ?Renal Panel? Order Date:08/21/22?- Complete on or after?08/21/22 ?Dexa Bone Density (Axial)? Order Date:08/21/22?- Complete on or after?08/21/22 Vital Signs Height 148.5 cm Weight 54.7 kg BMI 24.8 kg/m2 Blood Pressure 102 mm Hg/69 mm Hg Temperature 97.5 DegF Pulse Rate 68 bpm Respiratory Rate 02 Sat Mode of Delivery 99 %/Room air You can now view a summary of your hospital visit from the comfort of your home through a free online portal called [employer]. [employer] is a website that allows you to securely view your medical information including discharge summary, medications and follow-up visits. ??You can alsosend a secure electronic message to your doctor???s office to request appointments, renew medications or just ask a question. You can enroll at [email or web address] or register during your next office visit. Disclaimer:?? The information provided is of a general nature and is intended to be used in conjunction with the recommendations and advice of your health care practitioner. ??Every effort has been made to ensure that the information provided is accurate and complete at the time it is provided to you however, as your needs change, or, as new ??information becomes available, different or additional instructions may be required. If you have questions, please consult with your primary care provider or pharmacist, as appropriate. ??This information is not intended to serve as substitution for assessment and evaluation by a qualified health care provider. If you do not have a primary care provider, you may find a [facility] provider by calling [facility] at [phone]. For information about the plan of care including goals and instructions for your diagnosis, please see the patient education orders section of this document. Patient Education Materials?? The content of this educational material or handout may have been modified, supplemented, or adapted from its original content and format to support your individualized medical care. Prevention Guidelines, Women Ages 65 and Older Screening tests and vaccines are an important part of managing your health. Health counseling is essential, too. Below are guidelines for these, for women ages 65 and older. Talk with your healthcareprovider to make sure you???re up to date on what you need. Screening Who needs it How often Type 2 diabetes or prediabetes All adults beginning at age 45 and adults without symptoms at any age who are overweight or obese and have 1 or more additional risk factors for diabetes At least every 3 years Alcohol misuse All women in this age group At routine exams Blood pressure All women in this age group Every 2 years if your blood pressure is less than 120/80 mm Hg; yearly if your systolic blood pressure is 120 to 139 mm Hg, or your diastolic blood pressure reading is 80 to 89 mm Hg Breast cancer All women in this age group Yearly mammogram and clinical breast exam1 Cervical cancer Only women who had abnormal screening results before age 65 Talk with your healthcare provider Chlamydia Women at increased risk for infection At routine exams Colorectal cancer All women in this age group1 Flexible sigmoidoscopy every 5 years, or colonoscopy every 10 years, or double- contrast barium enema every 5 years; yearly fecal occult blood test or fecal immunochemical test; or a stool DNA test asoften as your healthcare provider advises; talk with your healthcare provider about which tests arebest for you Depression All women in this age group At routine exams Gonorrhea Sexually active women at increased risk for infection At routine exams Hepatitis C Anyone at increased risk; 1 time for those born between 1945 and 1964 At routine exams High cholesterol or triglycerides All women in this age group who are at risk for coronary artery disease At least every 5 years HIV Women at increased risk for infection ??? talk with your healthcare provider At routine exams Lung cancer Adults age 55 to 80 who have smoked Yearly screening in smokers with 30 pack-year history of smoking or who quit within 15 years Obesity All women in this age group At routine exams Osteoporosis All women in this age group Bone density test at age 65, then follow-up as advised by your healthcare provider Syphilis Women at increased risk for infection ??? talk with your healthcare provider At routine exams Thyroid-Stimulating Hormone (TSH) All women in this age group Every 5 years Tuberculosis Women at increased risk for infection ??? talk with your healthcare provider Ask your healthcare provider Vision All women in this age group Every 1 to 2 years; if you have a chronic health condition, ask your healthcare provider if you need exams more often Vaccine Who needs it How often Chickenpox (varicella) All women in this age group who have no record of this infection or vaccine 2 doses; second dose should be given at least 4 weeks after the first dose Hepatitis A Women at increased risk for infection ??? talk with your healthcare provider 2 doses given 6 months apart Hepatitis B Women at increased risk for infection ??? talk with your healthcare provider 3 doses over 6 months; second dose should be given 1 month after the first dose; the third dose should be given at least 2 months after the second dose and at least 4 months after the first dose Haemophilus influenza??Type B (HIB) Women at increased risk for infection ??? talk with your healthcare provider 1 to 3 doses Influenza (flu) All women in this age group Once a year Pneumococcal??conjugate vaccine (PCV13)??and pneumococcal polysaccharide??vaccine (PPSV23) All women in this age group 1 dose of each vaccine Tetanus/diphtheria/pertussis (Td/Tdap) booster All women in this age group Td every 10 years, or a one-time dose of Tdap instead of a Td booster after age 18, then Td every 10 years Zoster All women in this age group 1 dose Counseling Who needs it How often Diet and exercise Women who are overweight or obese When diagnosed, and then at routine exams Fall prevention (exercise and vitamin D supplements) All women in this age group At routine exams Sexually transmitted infection prevention Women at increased risk for infection ??? talk with your healthcare provider At routine exams Use of daily aspirin Women ages 55 and up in this age group who are at risk for cardiovascular health problems such as stroke When your risk is known Use of tobacco and the health effects it can cause All women in this age group Every exam 1[employer] ?? [phone] [employer] [place] [address]. All rights reserved. This information is not intended as a substitute for professional medical care. Always follow your healthcare professional's instructions. Patient Care team information Care Team Personnel Name: Elizabeth Barroso MD Position: [facility] Primary Care Physician Member Role: PCP Address: Address: [address] [place] [address] [address] [place] [address]- Care Team Related Persons Name: CAIO VELASQUEZ Address: home [address] [place], [place] Name: DANIELA MADRIGAL Address: [address] Name: CAIO DUNN Address: home [address] [place], [place]
--- OUTSIDE RECORDS SUMMARY | 2023-07-18 18:04 | XMS_ITS | Continuity of Care Document ---
Author Name Unknown Organization [facility] Address [address] [place] [address]- Care Team Providers Care Ear Nose Throat Surgeon Name Role Phone Chio MUSE, [place] Primary Care Physician [facility]counter [facility] Date(s): 10[facility]21 - 11/02/21 [facility] [address] [place] [address]- Allergies, Adverse Reactions, Alerts No Known Allergies [...] Health Status Inform ant Chronic abdominal pain(Confirmed) 1996 Active Chronic right shoulder pain(Confirmed) Active Diabetes as of 12/20/17(Confirmed) Active Fibromyalgia syndrome(Confirmed) Active Headache(Confirmed) 1995 Active Heartburn(Confirmed) Active Hyperlipidemia 272.4(Confirmed) Active HYPERTENSION(Confirmed) 2008 Active Osteopenia(Confirmed) 2019 Active Sleep disturbance(Confirmed) 1995 Active Social History Social History Type Response Smoking Status Never smoker entered on: 12/30/15 Sex
--- OUTSIDE RECORDS SUMMARY | 2023-07-18 18:04 | XMS_ITS | Continuity of Care Document ---
Author Name Unknown Organization [facility] Address [address] [place] [address]- Care Team Providers Care Flasher Adjuster Name Role Phone Chio MUSE, Elizabeth Primary Care Physician Encounter [facility] Date(s): 11/24/22 - 12/01/22 [facility] [address] [place] [address]- Encounter Diagnosis Osteoporosis(Discharge Diagnosis) - 11/24/22 Osteopenia(Discharge Diagnosis) - 11/24/22 Attending Physician: Chio MUSE, Elizabeth Allergies, Adverse Reactions, Alerts No Known Allergies [...] vaccine, inactivated 05/13/12 Give n SARS-CoV-2 mRNA (yvixtvk-xizf-lpgvx) vax 12/23/21 Recorded SARS-CoV-2 (COVID-19) Ad26 vaccine [...] week, # 12 tablet, 1 Refills, Maintenance, 11/24/22 17:43:00 EDT,Tablet, [facility], Partial fill upon patient request if the prescription is for a schedule II opioid drug., 148.5, cm, 11/24/22 16:34:00... Start Date: 11/24/22 Status: Ordered hydrochlorothiazide-lisinopril 12.5 mg-20 mg oral [...] 5, Maintenance, USE TO CHECK GLUCOSE ONCE [id number], 02/12/22 11:58:00 EDT, Supply, 148.4, cm, 02/11/22 [...] Confirmed Active Sleep disturbance Confirmed 1995 Active Diagnosis Diagnosis Type Effective Dates Health Status Cl inical Service Informant Osteoporosis Discharge Diagnosis 11/24/22 Osteopenia Discharge Diagnosis 11/24/22 Vital Signs Most recent to oldest [Reference Range]: 1 Height 148.5 cm (11/24/22 4:34 PM) Social History Social History Type Response Smoking Status Never smoker entered on: 12/30/15 Sex Patient Care team information Care Team Personnel Name: Chio MUSE, Elizabeth Position: [facility] Primary Care Physician Member Role: PCP Address: Address: [address] [place] [address] [address] [place] [address]- Care Team Related Persons Name: CAIO VELASQUEZ Address: home [address] [place] [address] Name: DANIELA MADRIGAL Address: [address] Name: CAIO DUNN Address: home [address] [place], [place]
--- OUTSIDE RECORDS SUMMARY | 2023-07-18 18:04 | XMS_ITS | Continuity of Care Document ---
Author Name Unknown Organization [facility] Adult Address [address] [place] [address]- Care Team Providers Care Dot Compliance Manager Name Role Phone Chio MUSE, Elizabeth Primary Care Physician [facility]counter [facility] Date(s): 08/18/21 - 08/25/21 [facility] [address] [place] [address]- Encounter Diagnosis Chronic right shoulder pain(Discharge Diagnosis) - 08/18/21 HYPERTENSION(Discharge Diagnosis) - 08/18/21 Diabetes as of 12/20/17(Discharge Diagnosis) - 08/18/21 Attending Physician: Chio MUSE, Elizabeth Referring Physician: Yari Echevarria MD, V Allergies, [...] 4Result Comment: S&S 5Result Comment: S&S Medications aspirin 81 mg oral tablet 1 [...] EST, Height Start Date: 07/30/21 Status: Ordered Jardiance 10 mg oral tablet [...] EST, Height Start Date: 08/18/21 Status: Ordered Tylenol 8 HR Arthritis Pain 650 mg oral tablet, extended release 1 tablet = 650 mg, By Mouth, Every 8 hours, PRN Pain , Moderate, # 100 tablet, 0 Refills, Maintenance, 07/30/21 10:31:00 EST, ER Tablet, [facility], Partial fill upon patient request if the prescription is for a schedule II opioid drug.,... Start Date: 07/30/21 Status: Ordered Zestoretic 12.5 mg-20 mg oral [...] Osteopenia(Confirmed) 2019 Active Sleep disturbance(Confirmed) 1995 Active Diagnosis Diagnosis Type Effective Dates Health Status Clinical Service Informant Chronic right shoulder pain Discharge Diagnosis 08/18/21 HYPERTENSION Discharge Diagnosis 08/18/21 Diabetes as of 12/20/17 Discharge Diagnosis 08/18/21 Vital Signs Most recent to oldest [Reference Range]: 1 Height 148.4 cm (08/18/21 11:34 AM) Weight 55.8 kg (08/18/21 11:34 AM) Oxygen Saturation [94-100 %] 99 % (08/18/21 11:34 AM) Pulse Rate [55-90 bpm] 77 bpm (08/18/21 11:34 AM) Body Mass Index [18.5-24.99] 25.34 *H* (08/18/21 11:34 AM) Blood Pressure [90-138/55-84 mm Hg] 128/ 70mm Hg (08/18/21 11:34 AM) Temperature [96.8-100.4 DegF] 98.1 DegF (08/18/21 11:34 AM) Mode of Delivery (Oxygen) Room air (08/18/21 11:34 AM) Blood pressure sites Arm, left (08/18/21 11:34 AM) Temperature Route Oral (08/18/21 11:34 AM) Social History Social History Type Response Smoking Status Never smoker entered on: 12/30/15 Sex
--- OUTSIDE RECORDS SUMMARY | 2023-07-18 18:04 | XMS_ITS | Continuity of Care Document ---
Author Name Unknown Organization [facility] Adult Address [address] [place] [address]- Care Team Providers Care Ultimate Hoops Scoreboard Operator Name Role Phone Chio MUSE, [place] Primary Care Physician [facility] Date(s): 10/30/22 - 11/29/22 [facility] Adult [address] [place] [address]- Allergies, Adverse Reactions, Alerts No Known Allergies [...] vaccine, inactivated 05/13/12 Give n SARS-CoV-2 mRNA (cgygosv-rsmd-mclip) vax 12/23/21 Recorded SARS-CoV-2 (COVID-19) Ad26 vaccine [...] 5, Maintenance, USE TO CHECK GLUCOSE ONCE [id number], 02/12/22 11:58:00 EDT, Supply, 148.4, cm, 02/11/22 [...] Team Personnel Name: Elizabeth Barroso MD Position: [facility] Primary Care Physician Member Role: PCP Address: Address: [address] [place] [address] [address] [place] [address]- Care Team Related Persons Name: CAIO VELASQUEZ Address: home [address] [place] [address] Name: DANIELA MADRIGAL Address: [address] [address] Name: CAIO DUNN Address: [address] [place] [address]
--- OUTSIDE RECORDS SUMMARY | 2023-07-18 18:04 | XMS_ITS | Continuity of Care Document ---
Author Name Unknown Organization [facility] Address [address] [place] [address]- Care Team Providers Care Medical Technologist Chief Name Role Phone Chio MUSE, [place] Primary Care Physician Encounter [facility] Date(s): 12/30/21 - 01/29/22 [facility] [address] [address] Attending Physician: Admjoe, Martine Admitting Physician: AdmtrMartine Referring Physician: Admtr, Ar8 Allergies, Adverse Reactions, Alerts No Known Allergies [...] 08/18/21 11:34:0... Start Date: 08/18/21 Status: Ordered One Touch Ultra 2 Glucose [...]
--- OUTSIDE RECORDS SUMMARY | 2023-07-18 18:04 | XMS_ITS | Continuity of Care Document ---
Author Name Unknown Organization [facility] Address [address] [place] [address]- Care Team Providers Care Baby Formula Worker Name Role Phone Chio MUSE, [place] Primary Care Physician [facility]counter [facility] Date(s): 09/02/20 - 10/02/20 [facility] [address] [place] [address]- Allergies, Adverse Reactions, Alerts Substance Reaction Severity Status NKA Active Immunizations Given and Recorded Vaccine Date Status Refusal Reason Influenza Virus Vaccine (oldterm) 1 06/01/20 Recor ded Influenza Virus Vaccine (oldterm) 2 06/01/20 Recor ded Influenza Virus Vaccine (oldterm) 07/03/19 Recorde d influenza virus vaccine, inactivated 3 06/24/18 Gi zeke influenza virus vaccine, inactivated 4 07/17/17 Gi zeke influenza virus vaccine, inactivated 5 06/22/16 Gi zeke influenza virus vaccine, inactivated 06/26/15 Give n influenza virus vaccine, inactivated 06/14/14 Give n influenza virus vaccine, inactivated 06/28/13 Give n influenza virus vaccine, inactivated 05/13/12 Give n pneumococcal 23-valent vaccine 03/01/18 Given pneumococcal 13-valent vaccine 12/15/16 Given tetanus/diphtheria/pertussis, acel(Tdap) 10/25/13 Given Diphth-Tetanus Toxoids Adsorbed(oldterm) 02/18/07 Given 1Result Comment: S&S 2Result Comment: S&S 3[facility] 4[facility] 5Admin Note: [facility] Medications aspirin 81 mg oral tablet 1 tablet = 81 mg, By Mouth, Daily, 0 Refills, Maintenance, 03/01/18 13:34:30 EDT Start Date: 03/01/18 Status: Ordered atorvastatin 40 mg oral tablet 1 tablet = 40 mg, By Mouth, Daily, # 30 tablet, 5 Refills, Maintenance, 05/02/20 16:48:00 EDT, Tablet, [facility], 149.4, cm, 08/18/19 13:29:00 EST, Height Start Date: 05/02/20 Status: Ordered omeprazole 20 mg oral enteric coated capsule 1 capsule = 20 mg, By Mouth, Daily, # 30 capsule, 0 Refills, Maintenance, 06/26/20 11:15:00 EDT, ECCapsule, [facility], 149.2, cm, 06/26/20 11:11:00 EDT, Height Start Date: 06/26/20 Status: Ordered Zestoretic 12.5 mg-20 mg oral tablet 1 tablet, By Mouth, Daily, # 30 tablet, 5 Refills, Maintenance, 10/01/20 18:48:00 EST, Tablet, [facility], 1 tablet By Mouth Daily, 149.2, cm, 09/03/20 15:54:00 EST, Height Start Date: 10/01/20 Status: Ordered Problem List Condition Effective Dates [...]
--- OUTSIDE RECORDS SUMMARY | 2023-07-18 18:04 | XMS_ITS | Continuity of Care Document ---
Author Name Unknown Organization [facility] Adult Address [address] [place] [address]- Care Team Providers Care Physician Assistant Surgery Name Role Phone Chio MUSE, Elizabeth Primary Care Physician [place] [facility] [place](s[place] 12/14/22 - 12/21/22 [facility] [address] [place] [address]- Encounter Diagnosis Left hand pain(Discharge Diagnosis) - 12/14/22 Attending Physician: Kerry Ross NP Referring Physician: Elizabeth Barroso MD Allergies, Adverse Reactions, [...] vaccine, inactivated 05/13/12 Give n SARS-CoV-2 mRNA ([id number]-musq-jabpq) vax 12/23/21 Recorded SARS-CoV-2 (COVID-19) Ad26 vaccine 12/14/20 Record ed Influenza Virus Vaccine (oldterm) 4 06/01/20 Recor ded Influenza Virus Vaccine (oldterm) 5 06/01/20 Recor ded Influenza Virus Vaccine (oldterm) 07/03/19 Recorde d pneumococcal 23-valent vaccine 03/01/18 Given pneumococcal 13-valent vaccine 4/11/17 Given tetanus/diphtheria/pertussis, acel(Tdap) 10/25/13 Given Diphth-Tetanus Toxoids [...] Dry Weight Start Date: 08/22/22 Status: Ordered diclofenac sodium 75 mg oral delayed release tablet 1 tablet = 75 mg, By Mouth, 2 times a day, PRN Pain , Moderate, with food, # 28 tablet, 0 Refills, Maintenance, 12/14/22 15:28:00 EDT, EC Tablet, [facility], Partial fill upon patient request if the prescription is for a schedule II opio... Start Date: 12/14/22 Stop Date: 12/28/22 Status: Ordered docusate sodium 100 mg oral [...] 5, Maintenance, USE TO CHECK GLUCOSE ONCE [id number], 02/12/22 11:58:00 EDT, Supply, 148.4, cm, 02/11/22 [...] Dates Health Status Cl inical Service Informant Left hand pain Discharge Diagnosis 12/14/22 Vital Signs Most recent to oldest [Reference Range]: 1 Height 148.5 cm (12/14/22 3:04 PM) Weight 58.1 kg (12/14/22 3:04 PM) Oxygen Saturation [94-100 %] 97 % (12/14/22 3:04 PM) Pulse Rate [55-90 bpm] 74 bpm (12/14/22 3:04 PM) Body Mass Index [18.5-24.99 kg/m2] 26.35 kg/m2 *H* (12/14/22 3:04 PM) Blood Pressure [90-138/55-84 mm Hg] 117/ 73mm Hg (12/14/22 3:04 PM) Mode of Delivery (Oxygen) Room air (12/14/22 3:04 PM) Blood pressure sites Arm, right (12/14/22 3:04 PM) Weight Obtained Via Standing scale (12/14/22 3:04 PM) Social History Social History Type Response Smoking Status Never smoker entered on: 12/30/15 Sex Note * Cintia Arana: PERFORM, SIGN, VERIFY Event Display: Patient Education/Instruction Authored Date: [id number] [facility] Clinical Summary Name MANRON Age 72 Years 1950 PCP Elizabeth Barroso MD PCP Visit Date 12/14/2022 15:02:00 Additional Instructions: Scheduled Appointments?? Future Appointments ?*[facility] ?[address],??[address] ?Phone:??--?Fax:??-- ?Appt. Date:??03/05/2023?3:50 PM ?Scheduled Provider:??Elizabeth Barroso MD Follow-Up Instructions ?? Diagnosis Pain in left hand Medications: Please continue your medications until treatment is completed or stopped by your provider. Discuss any questions related to medications with your provider. New Medications [facility], [address] [place], [place] [id number], [phone] Diclofenac (diclofenac sodium 75 mg oral delayed release tablet) 1 tab(s) Oral twice a day as needed Pain , Moderate for 14 Days. with food. Refills: 0. Next Dose: Medications to Continue with No Changes These medications were not printed or sent to your pharmacy Acetaminophen (acetaminophen 325 mg oral tablet) 3 tab(s) Oral every 8 hours. Next Dose: Alendronate (Fosamax 70 mg oral tablet) 1 tab(s) Oral every week. Refills: 1. Next Dose: Aspirin (aspirin 81 mg oral delayed release tablet) 1 tab(s) Oral Daily. Next Dose: Atorvastatin (atorvastatin 40 mg oral tablet) 1 tab(s) Oral Daily. Refills: 1. Next Dose: Cholecalciferol (Vitamin D3 1000 intl units oral capsule) 1 capsule Oral Daily. Refills: 1. Next Dose: Docusate (docusate sodium 100 mg [...] the morning. Refills: 3. Next Dose: Hydrochlorothiazide-Lisinopril (hydrochlorothiazide-lisinopril 12.5 mg-20 mg oral tablet) 1 tab(s) Oral Daily. Refills: 1. Next Dose: Allergy Info:?? NKA Medications Given This Visit Future Orders ?Hand Min 3 Views Left? Order Date:12/14/22?- Complete on or after?12/14/22 Vital Signs Height 148.5 cm Weight 58.1 kg BMI 26.35 kg/m2 Blood Pressure 117 mm Hg/73 mm Hg Temperature Pulse Rate 74 bpm Respiratory Rate 02 Sat Mode of Delivery 97 %/Room air You can now view a summary of your hospital visit from the [place] of your home through a free online portal called [employer]. [employer] is a website that allows you to securely view your medical information including discharge summary, medications and follow-up visits. ??You can alsosend a secure electronic message to your doctor???s office to request appointments, renew medications or just ask a question. You can enroll at [email or web address] or register during your next office visit. [...] primary care provider, you may find a [facility] provider by calling [facility] [employer] Link at [phone]. For information about the plan of care including goals and instructions for your diagnosis, please see the patient education orders section of this document. Patient Education Materials?? The content of this educational material or handout may have been modified, supplemented, or adapted from its original content and format to support your individualized medical care. Patient Care team information Care Team Personnel Name: Elizabeth Barroso MD Position: S Primary Care Physician Member Role: PCP Address: Address: [address] [facility] [address] [place] [address]- Care Team Related Persons Name: CAIO VELASQUEZ Address: home [address] [place], [place] Name: DANIELA MADRIGAL Address: [address] Name: CAIO DUNN Address: home [address] [place] [address]
--- OUTSIDE RECORDS SUMMARY | 2023-07-18 18:04 | XMS_ITS | Continuity of Care Document ---
Author Name Unknown Organization [facility] Address [address] [place] [address]- Care Team Providers Care Welder Gas Name Role Phone Chio MUSE, [place] Primary Care Physician [facility] Date(s): 05/02/20 - 06/01/20 [facility] [address] [place] [address]- [facility] Allergies, Adverse Reactions, Alerts Substance Reaction Severity [...] 5 Refills, Maintenance, 05/02/20 16:48:00 EDT, Tablet, [facility], 149.4, cm, 08/18/19 13:29:00 EST, Height Start Date: 05/02/20 Status: Ordered ibuprofen 800 mg oral tablet 800 mg, 1, tablet, By Mouth, 3 times a day, with food or milk, # 90 tablet, Refills 0, Tot. Refills0, Maintenance, 03/23/18 13:05:21 EDT, Route to Pharmacy Electronically, [id number], [facility] Start Date: 03/23/18 Stop Date: 04/22/18 Status: Ordered Zestoretic 12.5 mg-20 mg oral tablet 1 tablet, By Mouth, Daily, # 30 tablet, 5 Refills, Maintenance, 03/01/20 11:41:00 EDT, Tablet, [facility], 1 tablet By Mouth Daily, 149.4, cm, 08/18/19 13:29:00 EST, Height Start Date: 03/01/20 Status: Ordered Problem List Condition Effective Dates [...]
--- OUTSIDE RECORDS SUMMARY | 2023-07-18 18:04 | XMS_ITS | Continuity of Care Document ---
Author Name Unknown Organization [facility] Adult Address [address] [place] [address]- Care Team Providers Care House Superintendent Name Role Phone Chio MUSE, Elizabeth Primary Care Physician Encounter [facility] Date(s): 08/18/19 - 08/25/19 [facility] Adult [address] [place] [address] [facility] Encounter Diagnosis Diabetes as of 12/20/17(Discharge Diagnosis) - 08/18/19 HYPERTENSION(Discharge Diagnosis) - 08/18/19 Hyperlipidemia 272.4(Discharge Diagnosis) - 08/18/19 Attending Physician: Chio MUSE, Elizabeth Allergies, Adverse Reactions, Alerts Substance Reaction Severity [...] Refills, Maintenance, Tablet, Route to Pharmacy Electronically, [id number], [facility] Start Date: 02/17/19 Status: Ordered ibuprofen 800 mg oral tablet 800 mg, 1, tablet, By Mouth, 3 times a day, with food or milk, # 90 tablet, Refills 0, Tot. Refills0, Maintenance, 03/23/18 13:05:21 EDT, Route to Pharmacy Electronically, [id number], [facility] Start Date: 03/23/18 Stop Date: 04/22/18 Status: Ordered Zestoretic 12.5 mg-20 mg oral tablet 1 tablet, By Mouth, Daily, # 30 tablet, 5 Refills, Maintenance, 08/24/19 14:46:00 EST, Tablet, [facility], 1 tablet By Mouth Daily,x30 days, 149.4, cm, 08/18/19 13:29:00 EST, Height Start Date: 08/24/19 Stop Date: 02/20/20 Status: Ordered Problem List Condition Effective Dates Status Health Status Inform ant Chronic abdominal pain(Confirmed) 1995 Active Chronic right shoulder pain(Confirmed) Active Diabetes as of 12/20/17(Confirmed) Active Fibromyalgia syndrome(Confirmed) Active Headache(Confirmed) 1995 Active Hyperlipidemia 272.4(Confirmed) Active HYPERTENSION(Confirmed) 2008 Active Sleep disturbance(Confirmed) 1995 Active Diagnosis Diagnosis Type Effective Dates Health Status Clinical Service Informant Diabetes as of 12/20/17 Discharge Diagnosis 08/18/19 HYPERTENSION Discharge Diagnosis 08/18/19 Hyperlipidemia 272.4 Discharge Diagnosis 08/18/19 Vital Signs Most recent to oldest [Reference Range]: 1 Height 149.4 cm (08/18/19 1:29 PM) Weight 56.4 kg (08/18/19 1:29 PM) Body Mass Index [18.5-24.99] 25.27 *H* (08/18/19 1:29 PM) Blood Pressure [90-138/55-84 mm Hg] 100/ 66mm Hg (08/18/19 1:29 PM) Temperature [96.8-100.4 DegF] 97.8 DegF (08/18/19 1:29 PM) Blood pressure sites Arm, left (08/18/19 1:29 PM) Temperature Route Oral (08/18/19 1:29 PM) Social History Social History Type Response Smoking Status Never smoker entered on: 12/30/15 Sex
--- OUTSIDE RECORDS SUMMARY | 2023-07-18 18:04 | XMS_ITS | Continuity of Care Document ---
Author Name Unknown Organization [facility] Address [address] [place] [address]- Care Team Providers Care Bead Supervisor Name Role Phone Chio MUSE, Elizabeth Primary Care Physician Encounter [facility] [place] Date(s): 02/11/22 - 02/18/22 [facility] [place] [facility] [address] [place] [address]- Encounter Diagnosis Diabetes as of 12/20/17(Discharge Diagnosis) - 02/11/22 HYPERTENSION(Discharge Diagnosis) - 02/11/22 Hyperlipidemia 272.4(Discharge Diagnosis) - 02/11/22 Osteopenia(Discharge Diagnosis) - 02/11/22 Attending Physician: Chio MUSE, Elizabeth Allergies, Adverse Reactions, Alerts No Known Allergies Immunizations Given and Recorded Vaccine Date Status Refusal Reason SARS-CoV-2 mRNA (cxwulzv-woul-ytuej) vax 12/23/21 Recorded influenza virus vaccine, inactivated 07/09/21 Prem rded [...] (oldterm) 07/03/19 Recorde d pneumococcal 23-valent vaccine 6/26/18 Given pneumococcal 13-valent vaccine 12/15/16 Given tetanus/diphtheria/pertussis, [...] drug. Start Date: 08/26/21 Status: Ordered Jardiance 25 mg oral tablet [...] 5, Maintenance, USE TO CHECK GLUCOSE ONCE [id number], 02/12/22 11:58:00 EDT, Supply, 148.4, cm, 02/11/22 [...] EST, Height Start Date: 08/18/21 Status: Ordered Zestoretic 12.5 mg-20 mg oral [...] Informant Diabetes as of 12/20/17 Discharge Diagnosis 02/11/22 HYPERTENSION Discharge Diagnosis 02/11/22 Hyperlipidemia 272.4 Discharge Diagnosis 02/11/22 Osteopenia Discharge Diagnosis 02/11/22 Vital Signs Most recent to oldest [Reference Range]: 1 Height 148.4 cm (02/11/22 2:05 PM) Weight 57.0 kg (02/11/22 2:05 PM) Oxygen Saturation [94-100 %] 98 % (02/11/22 2:05 PM) Pulse Rate [55-90 bpm] 73 bpm (02/11/22 2:05 PM) Body Mass Index [18.5-24.99] 25.88 *H* (02/11/22 2:05 PM) Blood Pressure [90-138/55-84 mm Hg] 115/ 75mm Hg (02/11/22 2:05 PM) Temperature [96.8-100.4 DegF] 98.1 DegF (02/11/22 2:05 PM) Mode of Delivery (Oxygen) Room air (02/11/22 2:05 PM) Blood pressure sites Arm, left (02/11/22 2:05 PM) Temperature Route Oral (02/11/22 2:05 PM) Social History Social History Type Response Smoking Status Never smoker entered on: 12/30/15 Sex
--- OUTSIDE RECORDS SUMMARY | 2023-07-18 18:04 | XMS_ITS | Continuity of Care Document ---
Author Name Unknown Organization [facility] Adult Address [address] [place] [address]- Care Team Providers Care Environmental Permitting Specialist Name Role Phone Chio MUSE, [place] Primary Care Physician [facility] Date(s): 08/18/21 - 09/17/21 [facility] [address] [place] [address]- Attending Physician: Admtr, Ar8 Allergies, Adverse Reactions, Alerts Substance Reaction Severity [...]
--- OUTSIDE RECORDS SUMMARY | 2023-07-18 18:04 | XMS_ITS | Continuity of Care Document ---
Author Name Unknown Organization [facility] Adult Address [address] [place] [address]- Care Team Providers Care Smoke Inspector Name Role Phone Chio MUSE, [place] Primary Care Physician [facility]counter [facility] Date(s): 07/07/21 - 08/06/21 [facility] [address] [place] [address]- Allergies, Adverse Reactions, Alerts Substance Reaction Severity [...] EST, Height Start Date: 07/30/21 Status: Ordered metFORMIN 500 mg oral tablet 1 tablet = 500 mg, By Mouth, 2 times a day, # 180 tablet, 3 Refills, Maintenance, 07/30/21 10:36:00EST, Tablet, [facility], Partial fill upon patient request if the prescription isfor a schedule II opioid drug., 148.4, cm, 07/30/21 10:... Start Date: 07/30/21 Status: Ordered NuLYTELY with Flavor Packs oral powder for reconstitution 240 mL, By Mouth, Every 10 minutes, Split prep method CAN SUBSTITUTE WITH ANY PEG 3350 SOLUTION AVAILABLE, # 1 each, 0 Refills, Acute 01/21/22 6:30:00 EDT, 01/20/22 17:00:00 EDT, REC Powder, [facility], test date 01/21/22, 240 mL By Mout... Start Date: 01/20/22 Stop Date: 01/21/22 Status: Ordered Tylenol 8 HR Arthritis Pain [...]
--- OUTSIDE RECORDS SUMMARY | 2023-07-18 18:04 | XMS_ITS | Continuity of Care Document ---
Author Name Unknown Organization [facility] Adult Address [address] [place] [address]- Care Team Providers Care Cyber Intel Planner Name Role Phone Chio MUSE, Elizabeth Primary Care Physician [place] [facility] [place] 01/10/21 [facility] Adult [address] [place] [address]- Encounter Diagnosis Diabetes as of 12/20/17(Discharge Diagnosis) - 01/03/21 HYPERTENSION(Discharge Diagnosis) - 01/03/21 Hyperlipidemia 272.4(Discharge Diagnosis) - 01/03/21 Osteopenia(Discharge Diagnosis) - 01/03/21 Attending Physician: Chio MUSE, Elizabeth Allergies, Adverse Reactions, Alerts Substance Reaction Severity Status NKA Active Immunizations Given and Recorded Vaccine Date Status Refusal Reason SARS-CoV-2 (COVID-19) Ad26 vaccine 12/14/20 Record ed Influenza Virus Vaccine (oldterm) 1 06/01/20 Recor [...] mg, By Mouth, Daily, # 90 tablet, 1 Refills, Maintenance, 12/25/20 15:02:00 EDT, Tablet, [facility], 149.2, cm, 09/03/20 15:54:00 EST, Height Start Date: 12/25/20 Status: Ordered metFORMIN 500 mg oral tablet 1 tablet = 500 mg, By Mouth, 2 times a day, # 60 tablet, 5 Refills, Maintenance, 01/03/21 11:31:00 EDT, Tablet, [facility], Partial fill upon patient request if the prescription is for a schedule II opioid drug., 149.2, cm, 01/03/21 11:0... Start Date: 01/03/21 Status: Ordered Zestoretic 12.5 mg-20 mg oral tablet 1 tablet, By Mouth, Daily, # 90 tablet, 1 Refills, Maintenance, 12/23/20 11:17:00 EDT, Tablet, [facility], 1 tablet By Mouth Daily, 149.2, cm, 09/03/20 15:54:00 EST, Height Start Date: 12/23/20 Status: Ordered Problem List Condition Effective Dates [...] Informant Diabetes as of 12/20/17 Discharge Diagnosis 01/03/21 HYPERTENSION Discharge Diagnosis 01/03/21 Hyperlipidemia 272.4 Discharge Diagnosis 01/03/21 Osteopenia Discharge Diagnosis 01/03/21 Vital Signs Most recent to oldest [Reference Range]: 1 Height 149.2 cm (01/03/21 11:04 AM) Weight 59.8 kg (01/03/21 11:04 AM) Oxygen Saturation [94-100 %] 99 % (01/03/21 11:04 AM) Pulse Rate [55-90 bpm] 78 bpm (01/03/21 11:04 AM) Body Mass Index [18.5-24.99] 26.86 *H* (01/03/21 11:04 AM) Blood Pressure [90-138/55-84 mm Hg] 134/ 80mm Hg (01/03/21 11:04 AM) Temperature [96.8-100.4 DegF] 98.1 DegF (01/03/21 11:04 AM) Mode of Delivery (Oxygen) Room air (01/03/21 11:04 AM) Blood pressure sites Arm, left (01/03/21 11:04 AM) Temperature Route Oral (01/03/21 11:04 AM) Social History Social History Type Response Smoking Status Never smoker entered on: 12/30/15 Sex
--- OUTSIDE RECORDS SUMMARY | 2023-07-18 18:04 | XMS_ITS | Continuity of Care Document ---
Author Name Unknown Organization [facility] Adult Address [address] [place] [address]- Care Team Providers Care Heater Helper Name Role Phone Chio MUSE, [place] Primary Care Physician [facility]counter [facility] Date(s): 08/06/20 - 09/05/20 [facility] [address] [place] [address]- Allergies, Adverse Reactions, Alerts Substance Reaction Severity [...] 5 Refills, Maintenance, 05/02/20 16:48:00 EDT, Tablet, [facility], 149.4, cm, 08/18/19 13:29:00 EST, Height Start Date: 05/02/20 Status: Ordered omeprazole 20 mg oral enteric coated capsule 1 capsule = 20 mg, By Mouth, Daily, # 30 capsule, 0 Refills, Maintenance, 06/26/20 11:15:00 EDT, ECCapsule, [facility], 149.2, cm, 06/26/20 11:11:00 EDT, Height Start Date: 06/26/20 Status: Ordered Zestoretic 12.5 mg-20 mg oral tablet 1 tablet, By Mouth, Daily, # 30 tablet, 5 Refills, Maintenance, 03/01/20 11:41:00 EDT, Tablet, [facility], 1 tablet By Mouth Daily, [...]
--- OUTSIDE RECORDS SUMMARY | 2023-07-18 18:04 | XMS_ITS | Continuity of Care Document ---
Author Name Unknown Organization [facility] Adult Address [address] [place] [address]- Care Team Providers Care Record Keeper Name Role Phone Chio MUSE, Elizabeth Primary Care Physician Encounter [facility] [place] Date(s): 12/16/22 - 01/15/23 [facility] Adult [address] [place] [address]- Allergies, Adverse Reactions, Alerts No Known Allergies [...] vaccine, inactivated 05/13/12 Give n SARS-CoV-2 mRNA (aoyjdmt-zdwk-vbhii) vax 12/23/21 Recorded SARS-CoV-2 (COVID-19) Ad26 vaccine [...] 5, Maintenance, USE TO CHECK GLUCOSE ONCE [id number], 02/12/22 11:58:00 EDT, Supply, 148.4, cm, 02/11/22 [...] Team Personnel Name: Chio MUSE, Elizabeth Position: [facility] Primary Care Physician Member Role: PCP [facility] [address] [place] [address]- Care Team Related Persons Name: CAIO VELASQUEZ Address: home [address] [place] [address] Name: DANIELA MADRIGAL Address: [address] Name: CAIO DUNN Address: home [address] [place], [place]
--- OUTSIDE RECORDS SUMMARY | 2023-07-18 18:04 | XMS_ITS | Continuity of Care Document ---
Author Name Unknown Organization [facility] Adult Address [address] [place] [address]- Care Team Providers Care Generator Mechanic Name Role Phone Chio MUSE, [place] Primary Care Physician [facility]counter [facility] Date(s): 06/17/23 - 07/17/23 [facility] Adult [address] [place] [address]- Allergies, Adverse Reactions, Alerts No Known Allergies Immunizations Given and Recorded Vaccine Date Status Refusal Reason influenza virus vaccine, inactivated 06/22/23 Prem rded influenza virus vaccine, inactivated 07/15/22 Prem rded [...] vaccine, inactivated 05/13/12 Give n SARS-CoV-2 mRNA (lssbfyg-sngb-pubgz) vax 12/23/21 Recorded SARS-CoV-2 (COVID-19) Ad26 vaccine [...] Refills, Maintenance, 02/25/23 10:38:00 EDT, [facility], 148.5, cm, 12/14/22 15:04:00 EDT, [...] Refills, Maintenance, 03/05/23 16:24:00 EDT,Tablet, [facility], Partial [...] AM, # 90 tablet, 3 Refills, Maintenance, 07/13/23 14:16:00 EST, [facility], 148.5, cm, 07/13/23 13:45:00 EST, Height, 55.5, kg, 08/26/21 10:10:00 EST, Dry Weight Start Date: 07/13/23 Stop Date: 07/13/24 Status: Ordered One Touch Delica Lancets See Instructions, # 1 each, Refills 5, Tot. Refills 5, Maintenance, USE TO CHECK GLUCOSE ONCE [id number], 02/12/22 11:58:00 EDT, Supply, 148.4, cm, 02/11/22 [...] Team Personnel Name: Elizabeth Barroso MD Position: [facility] Physician - Primary Care Member Role: PCP Address: Address: [address] [place] [address] 3rd [place] [address]- Care Team Related Persons Name: CAIO VELASQUEZ Address: home [address] [place] [address] Name: DANIELA MADRIGAL Address: [address] [address] Name: CAIO DUNN Address: home [address] [place] [address]
--- OUTSIDE RECORDS SUMMARY | 2023-07-18 18:04 | XMS_ITS | Continuity of Care Document ---
Author Name Unknown Organization [facility] Adult Address [address] [place] [address]- Care Team Providers Care Double Needle Operator Name Role Phone Chio MUSE, Elizabeth Primary Care Physician Encounter [facility] [place] Date(s): 08/19/21 - 09/18/21 [facility] Adult [address] [place] [address]- Allergies, Adverse Reactions, Alerts No Known Allergies [...] right shoulder pain(Confirmed) Active Diabetes as of 4/16/18(Confirmed) Active Fibromyalgia syndrome(Confirmed) Active Headache(Confirmed) 1995 Active Heartburn(Confirmed) Active Hyperlipidemia 272.4(Confirmed) Active HYPERTENSION(Confirmed) 2008 Active Osteopenia(Confirmed) 2019 Active Sleep disturbance(Confirmed) 1995 Active Social History Social History Type Response Smoking Status Never smoker entered on: 12/30/15 Sex
--- OUTSIDE RECORDS SUMMARY | 2023-07-18 18:04 | XMS_ITS | Continuity of Care Document ---
Author Name Unknown Organization [facility] Address [address] [place] [address]- Care Team Providers Care Cue Worker Name Role Phone Chio MUSE, [place] Primary Care Physician Encounter [facility] [place] Date(s): 07/12/23 - 07/12/[address] [address]- Discharge Disposition: A-D/C Walkout Attending Physician: Not on Staff, Attending MD Admitting Physician: Not on Staff, Admitting MD Referring Physician: Not on Staff, Referring MD Allergies, Adverse Reactions, Alerts No Known [...] vaccine, inactivated 05/13/12 Give n SARS-CoV-2 mRNA (aggdnpo-iqim-jynoc) vax 12/23/21 Recorded SARS-CoV-2 (COVID-19) Ad26 vaccine 12/14/20 Record ed Influenza Virus Vaccine (oldterm) 4 06/01/20 Recor ded Influenza Virus Vaccine (oldterm) 5 06/01/20 Recor ded Influenza Virus Vaccine (oldterm) 07/03/19 Recorde d pneumococcal 23-valent vaccine 03/01/18 Given pneumococcal 13-valent vaccine 12/15/16 Given tetanus/diphtheria/pertussis, acel(Tdap) 2/19/14 Given Diphth-Tetanus Toxoids Adsorbed(oldterm) 02/18/07 Given 1Admin [...] Refills, Maintenance, 02/25/23 10:38:00 EDT, [facility], 148.5, [...] 5, Maintenance, USE TO CHECK GLUCOSE ONCE [id number], 02/12/22 11:58:00 EDT, Supply, 148.4, cm, 02/11/22 [...] Confirmed Active Sleep disturbance Confirmed 1995 Active Results Radiology Reports * Exam Date Time Procedure Performing Provider Status 07/12/23 1:32 PM US Doppler Ext Lower Venous Right Aurora Naik; Auth (Verified) Notes: (US Doppler Ext Lower Venous Right) Reason For Exam: Pain in limb;Other: RESULT: US Doppler Ext Lower Venous Right US Doppler Ext Lower Venous Right Hx of Present Illness: Pt stating two weeks of leg pain from walking, worse in R leg. Reports chestdiscomfort with coughing. Took Covid test at home was negative. No sick contacts.; Reason: Other:; Pain in limb; Clinical Question(s): Thrombus COMPARISON: None IMAGING TECHNIQUE: Ultrasound of the veins from the groin through the calf was performed using grayscale, color, and spectral Doppler ultrasound assessing for complete compressibility and normal flowcharacteristics. FINDINGS: Common femoral vein: Patent. No thrombosis. Femoral vein: Patent. No thrombosis. Popliteal vein: Patent. No thrombosis. Slow flow. Gastrocnemius veins: The visualized portions are patent without evidence of thrombosis. Peroneal veins: The visualized portions are patent without evidence of thrombosis. Posterior tibial veins: The visualized portions are patent without evidence of thrombosis. Contralateral common femoral vein: Patent. No thrombosis. OTHER FINDINGS: None. IMPRESSION: No evidence of deep venous thrombosis. I have personally reviewed the images and I agree with this report. WSN: [id number] Ordering Physician: Ellie Plata Dictated By: Edith Parker DO Dictated Date/Time: 07/12/23 1:50 pm Reviewed By: Ange Eckert MD Signed By: Ange Eckert MD Signed Date/Time: 07/12/23 1:55 pm Transcribed By: MYRA Transcribed Date/Time: 07/12/23 1:37 pm * Exam Date Time Procedure Performing Provider Status 07/12/23 1:06 PM US RUQ Aurora NaikLeandra saavedra (Verified) Notes: (US RUQ) Reason For Exam: Abdominal Pain;Other: RESULT: US RUQ US RUQ Hx of Present Illness: Abdominal Pain; Clinical Question(s): Cholecystitis COMPARISON: None. FINDINGS: Liver: Normal in size and echotexture. No focal lesion. Smooth hepatic contour. Main portal vein patent with normal hepatopetal direction of flow. Gallbladder: Solitary 2.8 cm mobile gallstone. Normal wall thickness. No pericholecystic fluid. Negative Peoples sign. Biliary Tree: No intrahepatic or extrahepatic bile duct dilation is identified. Common duct measures: 0.4 cm. Pancreas: Partially obscured by overlying bowel gas. No abnormality in the visualized portions of the pancreas. Right kidney: 9.5 cm in length. Normal parenchymal echotexture and thickness. No hydronephrosis, stone or mass. IMPRESSION: Cholelithiasis without evidence of acute cholecystitis. I have personally reviewed the images and I agree with this report. WSN: [id number] Ordering Physician: Ellie Plata Dictated By: Edith Parker DO Dictated Date/Time: 07/12/23 1:39 pm Reviewed By: Ange Eckert MD Signed By: Ange Eckert MD Signed Date/Time: 07/12/23 1:44 pm Transcribed By: MYRA Transcribed Date/Time: 07/12/23 1:21 pm * Exam Date Time Procedure Performing Provider Status 07/12/23 11:51 AM Chest 2 Views Frontal and Lat Camila Millan; Ryan (Verified) Notes: (Chest 2 Views Frontal and Lat) Reason For Exam: Shortness of Breath, Fever;Other: RESULT: Chest 2 Views Frontal and Lat Chest 2 Views Frontal and Lat Hx of Present Illness: Pt stating two weeks of leg pain from walking, worse in R leg. reports chestdiscomfort with coughing. took covid test at home was negative. no sick contacts.; Reason: Other:; Shortness of Breath, Fever; Clinical Question(s): Pneumonia COMPARISON: Multiple priors the most recent dated 10/14/2018. FINDINGS: LINES AND TUBES: None. LUNGS AND PLEURA: Clear lungs. Normal pulmonary vascularity. No pleural effusion. No pneumothorax. HEART, MEDIASTINUM AND KATHERINE: Heart is normal in size. Normal mediastinal and hilar contour. BONES AND SOFT TISSUES: No acute abnormality. Reverse right shoulder arthroplasty. Mild degenerative change left shoulder. IMPRESSION: No acute cardiopulmonary disease is seen. WSN: [id number] Ordering Physician: Ellie Plata Dictated By: Bandar Allen MD, V Dictated Date/Time: 07/12/23 12:03 p Reviewed By: Bandar Allen MD, V Signed By: Bandar Allen MD, V Signed Date/Time: 07/12/23 12:03 pm Transcribed By: MYRA Transcribed Date/Time: 07/12/23 12:00 pm Vital Signs Most recent to oldest [Reference Range]: 1 2 3 Oxygen Saturation [94-100 %] 97 % (07/12/23 6:22 PM) 98 % (07/12/23 9:47 AM) 100 % (07/12/23 9:09 AM) Pulse Rate [55-90 bpm] 80 bpm (07/12/23 6:22 PM) 80 bpm (07/12/23 9:47 AM) 79 bpm (07/12/23 9:09 AM) Blood Pressure [90-138/55-84 mm Hg] 115/63mm Hg (07/12/23 6:22 PM) 119/59mm Hg (07/12/23 9:47 AM) Respiratory Rate [16-30 br/min] 18 br/min (07/12/23 6:22 PM) 20 br/min (07/12/23 9:47 AM) 18 br/min (07/12/23 9:09 AM) Temperature [96.8-100.4 DegF] 98.4 DegF (07/12/23 6:22 PM) 98.6 DegF (07/12/23 9:47 AM) Mode of Delivery (Oxygen) Room air (07/12/23 6:22 PM) Room air (07/12/23 9:47 AM) Room air (07/12/23 9:09 AM) Blood pressure sites Arm, right (07/12/23 6:22 PM) Arm, right (07/12/23 9:47 AM) Temperature Route Oral (07/12/23 6:22 PM) Oral (07/12/23 9:47 AM) Social History Social History Type Response Smoking Status Never smoker entered on: 12/30/15 Sex Patient Care team information Care Team Personnel Name: Elizabeth Barroso MD Position: S Physician - Primary Care Member Role: PCP Address: Address: [address] [place] [address] [address] [place] [address]- Care Team Related Persons Name: CAIO VELASQUEZ Address: home [address] [place] [address] Name: DANIELA MADRIGAL Address: [address] [address] Name: CAIO DUNN Address: home [address] [place] [address]
--- OUTSIDE RECORDS SUMMARY | 2023-07-18 18:04 | XMS_ITS | Continuity of Care Document ---
Author Name Unknown Organization [facility] ter Address [address] [place] [address]- Care Team Providers Care Air Analysis Technician Name Role Phone Chio MUSE, Elizabeth Primary Care Physician [facility]counter [facility] Date(s): 08/24/22 - 11/26/[address] [address] Attending Physician: Elizabeth Barroso MD Admitting Physician: Elizabeth Barroso MD Referring Physician: Elizabeth Barroso MD Allergies, Adverse [...] vaccine, inactivated 05/13/12 Give n SARS-CoV-2 mRNA (yqwolvm-djhw-hjasa) vax 12/23/21 Recorded SARS-CoV-2 (COVID-19) Ad26 vaccine [...] 5, Maintenance, USE TO CHECK GLUCOSE ONCE [id number], 02/12/22 11:58:00 EDT, Supply, 148.4, cm, 02/11/22 [...] Team Personnel Name: Chio MUSE, Elizabeth Position: [facility] Primary Care Physician Member Role: PCP Address: Address: [address] [place] [address] [address]rd [address] [place], [place] [address] Care Team Related Persons Name: CAIO VELASQUEZ Address: home [address] [place] [address] Name: DANIELA MADRIGAL Address: [address] [address] Name: CAIO DUNN Address: home [address] [place] [address]
--- OUTSIDE RECORDS SUMMARY | 2023-07-18 18:04 | XMS_ITS | Continuity of Care Document ---
Author Name Unknown Organization [facility] Adult Address [address] [place] [address]- Care Team Providers Care Toaster Element Repairer Name Role Phone Chio MUSE, Elizabeth Primary Care Physician [place] [facility] [place] Date(s): 03/05/23 - 03/12/23 [facility] Adult [address] [place] [address]- Encounter Diagnosis HYPERTENSION(Discharge Diagnosis) - 03/05/23 Hyperlipidemia 272.4(Discharge Diagnosis) - 03/05/23 Osteoporosis(Discharge Diagnosis) - 03/05/23 Osteopenia(Discharge Diagnosis) - 03/05/23 Diabetes as of 12/20/17(Discharge Diagnosis) - 03/05/23 Bilateral calf pain(Discharge Diagnosis) - 03/05/23 Attending Physician: Chio MUSE, Elizabeth Allergies, Adverse [...] vaccine, inactivated 05/13/12 Give n SARS-CoV-2 mRNA (ymcdkoj-womh-avxvi) vax 12/23/21 Recorded SARS-CoV-2 (COVID-19) Ad26 vaccine [...] 5, Maintenance, USE TO CHECK GLUCOSE ONCE VSXYUS24.9, 02/12/22 11:58:00 EDT, Supply, 148.4, cm, 02/11/22 [...] Effective Dates Health Status Clinical Service Informant HYPERTENSION Discharge Diagnosis 03/05/23 Hyperlipidemia 272.4 Discharge Diagnosis 03/05/23 Osteoporosis Discharge Diagnosis 03/05/23 Osteopenia Discharge Diagnosis 03/05/23 Diabetes as of 12/20/17 Discharge Diagnosis 03/05/23 Bilateral calf pain Discharge Diagnosis 03/05/23 Vital Signs Most recent to oldest [Reference Range]: 1 Height 148.5 cm (03/05/23 3:51 PM) Weight 56.3 kg (03/05/23 3:51 PM) Oxygen Saturation [94-100 %] 100 % (03/05/23 3:51 PM) Pulse Rate [55-90 bpm] 76 bpm (03/05/23 3:51 PM) Body Mass Index [18.5-24.99 kg/m2] 25.53 kg/m2 *H* (03/05/23 3:51 PM) Blood Pressure [90-138/55-84 mm Hg] 97/6 6mm Hg (03/05/23 3:51 PM) Mode of Delivery (Oxygen) Room air (03/05/23 3:51 PM) Blood pressure sites Arm, right (03/05/23 3:51 PM) Temperature Route Oral (03/05/23 3:51 PM) Social History Social History Type Response Smoking Status Never smoker entered on: 12/30/15 Sex Note * Colon , Evelyn: PERFORM, SIGN, VERIFY Event Display: Patient Education/Instruction Authored Date: [id number] [facility] *[facility] Clinical Summary Name MAN, VELASQUEZ Age 72 Years 1950 PCP Elizabeth Barroso MD PCP Visit Date 03/05/2023 15:27:00 Additional Instructions: Scheduled Appointments?? Future Appointments ?No Future Appointments Scheduled Follow-Up Instructions ?? With: Address: When: Chio MUSE, Elizabeth Within 6 months Comments: MWV Diagnosis Type 2 diabetes mellitus without complications; Hyperlipidemia, unspecified; Other specified disorders of bone density and structure, unspecified site; Essential (primary) hypertension; Age-related osteoporosis without current pathological fracture; Pain in right lower leg Medications: Please continue your medications until treatment is completed or stopped by your provider. Discuss any questions related to medications with your provider. Medications to Continue with No Changes [facility], [address] [place], [place] [id number], [phone] Alendronate (Fosamax 70 mg oral tablet) 1 tab(s) Oral every week. Refills: 1. Next Dose: These medications were not printed or sent [...] tab(s) Oral Daily. Refills: 1. Next Dose: No Longer Take the Following Medications Diclofenac (diclofenac sodium 75 mg oral delayed release tablet) 1 tab(s) Oral twice a day as needed Pain , Moderate for 14 Days. with food. Refills: 0. Allergy Info:?? NKA Medications Given This Visit Future Orders ?CPK Total Only? Order Date:03/05/23?- Complete on or after?03/05/23 ?Renal Panel? Order Date:03/05/23?- Complete on or after?03/05/23 ?TSH with T4 Reflex (Adults Only)? Order Date:03/05/23?- Complete on or after?03/05/23 ?Vitamin B12 Level? Order Date:03/05/23?- Complete on or after?03/05/23 ?Magnesium Level? Order Date:03/05/23?- Complete on or after?03/05/23 Vital Signs Height 148.5 cm Weight 56.3 kg BMI 25.53 kg/m2 Blood Pressure 97 mm Hg/66 mm Hg Temperature Pulse Rate 76 bpm Respiratory Rate 02 Sat Mode of Delivery 100 %/Room air You can now view a summary of your hospital visit from the comfort of your home through a free online portal called [employer]. [employer] is a website that allows you to securely view your medical information including discharge summary, medications and follow-up visits. ??You can alsosend a secure electronic message to your doctor???s office to request appointments, renew medications or just ask a question. You can enroll at [email or web address] or register during your next office visit. [...] primary care provider, you may find a Critical Access Hospital provider by calling [facility] at [phone]. For information about the plan of care [...] Primary Care Member Role: PCP Address: Address: [address] [place] [address] Drive 3rd Floor [facility] [place] [address]- [place] Care Team Related Persons Name: CAIO VELASQUEZ Address: home [address] [place] [address] Name: DANIELA MADRIGAL Address: [address] [address] Name: CAIO DUNN Address: home [address] [place] [address]
--- OUTSIDE RECORDS SUMMARY | 2023-07-18 18:04 | XMS_ITS | Continuity of Care Document ---
Author Name Unknown Organization [facility] Address [address] [place] [address]- Care Team Providers Care Material Cutter Name Role Phone Chio MUSE, Elizabeth Primary Care Physician [facility]counter [facility] Date(s): 08/06/21 - 09/05/21 [facility] [address] [place] [address]- [place] Allergies, Adverse Reactions, Alerts Substance Reaction Severity [...]
--- OUTSIDE RECORDS SUMMARY | 2023-07-18 18:04 | XMS_ITS | Continuity of Care Document ---
Author Name Unknown Organization [facility] Adult Address [address] [place] [address]- Care Team Providers Care Boiler Maker Name Role Phone Chio MUSE, Elizabeth Primary Care Physician Encounter [facility] [place] Date(s): 09/03/20 - 09/10/20 [facility] Adult [address] [place] [address]- Encounter Diagnosis Chronic right shoulder pain(Discharge Diagnosis) - 09/03/20 Attending Physician: Chio MUSE, Elizabeth Allergies, Adverse [...] 5 Refills, Maintenance, 05/02/20 16:48:00 EDT, Tablet, [facility], 149.4, cm, 08/18/19 13:29:00 EST, Height Start Date: 05/02/20 Status: Ordered omeprazole 20 mg oral enteric coated capsule 1 capsule = 20 mg, By Mouth, Daily, # 30 capsule, 0 Refills, Maintenance, 06/26/20 11:15:00 EDT, ECCapsule, [facility], 149.2, cm, 06/26/20 11:11:00 EDT, Height Start Date: 06/26/20 Status: Ordered Zestoretic 12.5 mg-20 mg oral tablet 1 tablet, By Mouth, Daily, # 30 tablet, 5 Refills, Maintenance, 03/01/20 11:41:00 EDT, Tablet, [facility], 1 tablet By Mouth Daily, [...] Dates Health Status Cl inical Service Informant Chronic right shoulder pain Discharge Diagnosis 09/03/20 Vital Signs Most recent to oldest [Reference Range]: 1 Height 149.2 cm (09/03/20 3:54 PM) Social History Social History Type Response Smoking Status Never smoker entered on: 12/30/15 Sex
--- OUTSIDE RECORDS SUMMARY | 2023-07-18 18:04 | XMS_ITS | Continuity of Care Document ---
Author Name Unknown Organization [facility] Adult Address [address] [place] [address]- Care Team Providers Care Parking Assistant Name Role Phone Chio MUSE, Elizabeth Primary Care Physician Encounter [facility] [place] Date(s): 12/14/22 - 01/13/23 [facility] Adult [address] [place] [address]- Attending Physician: Admtr, Martine Allergies, Adverse Reactions, Alerts No Known Allergies [...] vaccine, inactivated 05/13/12 Give n SARS-CoV-2 mRNA (capgeim-chly-zvxxc) vax 12/23/21 Recorded SARS-CoV-2 (COVID-19) Ad26 vaccine [...] 5, Maintenance, USE TO CHECK GLUCOSE ONCE [id number], 02/12/22 11:58:00 EDT, Supply, 148.4, cm, 02/11/22 [...] Status Never smoker entered on: 12/30/15 Sex MG Breast Views * Event Display: MM Mammogram Authored Date: * Event Display: MM Mammogram Authored Date: * Event Display: MM Mammogram Authored Date: * Event Display: MM Mammogram, Non- BH Authored Date: * Event Display: MM Mammogram, Non- BH Authored Date: * Event Display: MM Mammogram, Non- BH Authored Date: Radiology * Event Display: Radiology Result Scanned Authored Date: * Micaela Kulkarni: PERFORM Event Display: Radiology Results Scanned Authored Date: [id number] * Balbina Braden: PERFORM Event Display: Radiology Results Scanned Authored Date: [id number] Patient Care team information Care Team Personnel Name: Elizabeth Barroso MD Position: [facility] Primary Care Physician Member Role: PCP [facility]: [facility] [address] [address] [place], [place] [address] Care Team Related Persons Name: CAIO VELASQUEZ Address: home [address] [place] [address] Name: DANIELA MADRIGAL Address: [address] [address] Name: EBER DUNNKHA Address: home [address] [place] [id number]
--- OUTSIDE RECORDS SUMMARY | 2023-07-18 18:04 | XMS_ITS | Continuity of Care Document ---
Author Name Unknown Organization [facility] Adult Address [address] [place] [address]- Care Team Providers Care Associate Director Career Services Name Role Phone Chio MUSE, Elizabeth Primary Care Physician Encounter [facility] [place] Date(s): 06/26/20 - 07/03/[address] [facility] Adult [address] [place] [address]- [facility] Encounter Diagnosis Well adult exam(Discharge Diagnosis) - 06/26/20 Diabetes as of 12/20/17(Discharge Diagnosis) - 06/26/20 HYPERTENSION(Discharge Diagnosis) - 06/26/20 Hyperlipidemia 272.4(Discharge Diagnosis) - 06/26/20 Fibromyalgia syndrome(Discharge Diagnosis) - 06/26/20 Heartburn(Discharge Diagnosis) - 06/26/20 Osteoporosis screening(Discharge Diagnosis) - 06/26/20 Attending Physician: Chio MUSE, [place] Allergies, Adverse Reactions, Alerts Substance Reaction Severity [...] 2/19/14 Given Diphth-Tetanus Toxoids Adsorbed(oldterm) 02/18/07 Given 1Result [...] 0 Refills, Maintenance, 06/26/20 11:15:00 EDT, ECCapsule, [facility], 149.2, cm, 06/26/20 11:11:00 EDT, Height Start Date: 06/26/20 Status: Ordered Zestoretic 12.5 mg-20 mg oral tablet 1 tablet, By Mouth, Daily, # 30 tablet, 5 Refills, Maintenance, 03/01/20 11:41:00 EDT, Tablet, [facility], 1 [...] Service Informant Well adult exam Discharge Diagnosis 06/26/20 Diabetes as of 12/20/17 Discharge Diagnosis 06/26/20 HYPERTENSION Discharge Diagnosis 06/26/20 Hyperlipidemia 272.4 Discharge Diagnosis 06/26/20 Fibromyalgia syndrome Discharge Diagnosis 06/26/20 Heartburn Discharge Diagnosis 06/26/20 Osteoporosis screening Discharge Diagnosis 06/26/20 Vital Signs Most recent to oldest [Reference Range]: 1 2 Height 149.2 cm (06/26/20 11:11 AM) 149.2 cm (06/26/20 10:37 AM) Weight 57.2 kg (06/26/20 10:37 AM) Oxygen Saturation [94-100 %] 100 % (06/26/20 10:37 AM) Pulse Rate [55-90 bpm] 69 bpm (06/26/20 10:37 AM) Body Mass Index [18.5-24.99] 25.7 *H* (06/26/20 10:37 AM) Blood Pressure [90-138/55-84 mm Hg] 138/ 76mm Hg (06/26/20 10:37 AM) Temperature [96.8-100.4 DegF] 97.9 DegF (06/26/20 10:37 AM) Mode of Delivery (Oxygen) Room air (06/26/20 10:37 AM) Blood pressure sites Arm, left (06/26/20 10:37 AM) Temperature Route Oral (06/26/20 10:37 AM) Social History Social History Type Response Smoking Status Never smoker entered on: 12/30/15 Sex
--- OUTSIDE RECORDS SUMMARY | 2023-07-18 18:04 | XMS_ITS | Continuity of Care Document ---
Author Name Unknown Organization [facility] Adult Address [address] [place] [address]- Care Team Providers Care Animation Artist Name Role Phone Chio MUSE, Elizabeth Primary Care Physician [place] [facility] [place] 07/30/21 - 08/06/21 [facility] Adult [address] [place] [address]- Encounter Diagnosis Well adult exam(Discharge Diagnosis) - 07/30/21 Diabetes as of 12/20/17(Discharge Diagnosis) - 07/30/21 HYPERTENSION(Discharge Diagnosis) - 07/30/21 Hyperlipidemia 272.4(Discharge Diagnosis) - 07/30/21 Osteopenia(Discharge Diagnosis) - 07/30/21 Chronic right shoulder pain(Discharge Diagnosis) - 07/30/21 Bilateral hand numbness(Discharge Diagnosis) - 07/30/21 Attending Physician: Chio MUSE, [place] Allergies, Adverse Reactions, Alerts Substance Reaction Severity [...] Service Informant Well adult exam Discharge Diagnosis 07/30/21 Diabetes as of 12/20/17 Discharge Diagnosis 07/30/21 HYPERTENSION Discharge Diagnosis 07/30/21 Hyperlipidemia 272.4 Discharge Diagnosis 07/30/21 Osteopenia Discharge Diagnosis 07/30/21 Chronic right shoulder pain Discharge Diagnosis 07/30/21 Bilateral hand numbness Discharge Diagnosis 07/30/21 Vital Signs Most recent to oldest [Reference Range]: 1 2 3 Height 148.4 cm (07/30/21 10:29 AM) 148.4 cm (07/30/21 10:09 AM) 148.4 cm (07/30/21 9:50 AM) Weight 55.7 kg (07/30/21 9:50 AM) Oxygen Saturation [94-100 %] 98 % (07/30/21 9:50 AM) Pulse Rate [55-90 bpm] 69 bpm (07/30/21 9:50 AM) Body Mass Index [18.5-24.99] 25.29 *H* (07/30/21 9:50 AM) Blood Pressure [90-138/55-84 mm Hg] 134/76mm Hg (07/30/21 10:29 AM) 148/77mm Hg *H* (07/30/21 10:09 AM) 156/102mm Hg *H* (07/30/21 9:50 AM) Temperature [96.8-100.4 DegF] 98.2 DegF (07/30/21 9:50 AM) Mode of Delivery (Oxygen) Room air (07/30/21 9:50 AM) Blood pressure sites Arm, left (07/30/21 10:09 AM) Arm, left (07/30/21 9:50 AM) Temperature Route Oral (07/30/21 9:50 AM) Social History Social History Type Response Smoking Status Never smoker entered on: 12/30/15 Sex
--- OUTSIDE RECORDS SUMMARY | 2023-07-18 18:04 | XMS_ITS | Continuity of Care Document ---
Author Name Unknown Organization [facility] Adult Address [address] [place] [address]- Care Team Providers Care Master [place] Name Role Phone Chio MUSE, Elizabeth Primary Care Physician Encounter [facility] [place] Date(s): 12/16/22 - 01/15/23 [facility] Adult [address] [place] [address]- Allergies, Adverse Reactions, Alerts No Known Allergies [...] vaccine, inactivated 05/13/12 Give n SARS-CoV-2 mRNA (flblmsw-zcqp-dwobf) vax 12/23/21 Recorded SARS-CoV-2 (COVID-19) Ad26 vaccine [...] 5, Maintenance, USE TO CHECK GLUCOSE ONCE [id number], 02/12/22 11:58:00 EDT, Supply, 148.4, cm, 02/11/22 [...] Team Personnel Name: Chio MUSE, Elizabeth Position: [facility] Primary Care Physician Member Role: PCP [facility]: [facility] [address] [place] [address]- Care Team Related Persons Name: CAIO VELASQUEZ Address: home [address] [place] [address] Name: DANIELA MADRIGAL Address: [address] Name: CAIO DUNN Address: home [address] [place], [place]
[2023-07-18 18:05] LABS: Basophils Absolute Auto 0.1 X10*3/uL (0.0-0.2); Basophils Percent Auto 0.5 % (0-2); Eosinophils Absolute Auto 0.4 X10*3/uL (0.0-0.4); Hematocrit 30.7 % (37.0-47.0); Hemoglobin 9.3 g/dl (12.0-16.0); Imm Gran Abs Auto 0.11 X10*3/uL (0.00-0.03); Lymphocytes Absolute Auto 1.2 X10*3/uL (1.2-4.9); Lymphocytes Percent Auto 11.3 % (20-40); Mean Corpuscular HGB Conc 30.3 g/dl (31.0-35.0); Mean Corpuscular Hemoglobin 26.9 pg (27.0-33.0); Mean Corpuscular Volume 88.7 fL (80.0-98.0); Mean Platelet Volume 11.3 fL (9.4-12.3); Monocytes Absolute Auto 1.1 X10*3/uL (0.1-1.2); Monocytes Percent Auto 10.2 % (2-11); Neutrophils Absolute Auto 7.9 x10*3/uL (2.0-8.3); Platelet Count 276 X10*3/uL (160-400); Red Blood Count 3.46 X10*6/uL (4.20-5.50); Red Cell Distribution Width 13.3 % (11.0-16.0); White Blood Count 10.9 X10*3/uL (4.8-10.8)
--- OUTSIDE RECORDS SUMMARY | 2023-07-18 18:05 | XMS_ITS | Continuity of Care Document ---
Author Name Unknown Organization [facility] Adult Address [address] [place] [address]- Care Team Providers Care Contract Administration Coordinator Name Role Phone Chio MUSE, [place] Primary Care Physician Encounter [facility] Date(s): 03/05/23 - 04/04/23 [facility] Adult [address] [place] [address]- Attending Physician: Admtr, Ar8 Allergies, Adverse Reactions, [...] vaccine, inactivated 05/13/12 Give n SARS-CoV-2 mRNA (laroxbm-gips-yvoui) vax 12/23/21 Recorded SARS-CoV-2 (COVID-19) Ad26 vaccine [...] 5, Maintenance, USE TO CHECK GLUCOSE ONCE [id number], 02/12/22 11:58:00 EDT, Supply, 148.4, cm, 02/11/22 [...] Event Display: Radiology Results Scanned Authored Date: [id number] * Balbina Braden: PERFORM Event Display: Radiology Results Scanned Authored Date: Patient Care team information Care Team Personnel Name: Chio MUSE, Elizabeth Position: S Physician - Primary Care Member Role: PCP Address: Address: [address] [place] [address] [address] [place], [place] [address] Care Team Related Persons Name: CAIO VELASQUEZ Address: home [address] [place] [address] Name: DANIELA MADRIGAL Address: [address] [address] Name: CAIO DUNN Address: [address] [place] [address]
--- OUTSIDE RECORDS SUMMARY | 2023-07-18 18:05 | XMS_ITS | Continuity of Care Document ---
Author Name Unknown Organization [facility] Adult Address [address] [place] [address]- Care Team Providers Care Ironing Worker Name Role Phone Chio MUSE, [place] Primary Care Physician Encounter [facility] Date(s): 04/15/23 - 05/15/23 [facility] Adult [address] [place] [address]- Allergies, Adverse Reactions, Alerts No Known Allergies [...] vaccine, inactivated 05/13/12 Give n SARS-CoV-2 mRNA (omjizya-ozvc-rinrn) vax 12/23/21 Recorded SARS-CoV-2 (COVID-19) Ad26 vaccine [...] Refills, Maintenance, 02/25/23 10:38:00 EDT, [facility], 148.5, cm, 12/14/22 15:04:00 EDT, [...] Refills, Maintenance, 03/05/23 16:24:00 EDT,Tablet, [facility], Partial fill upon patient request [...] 5, Maintenance, USE TO CHECK GLUCOSE ONCE ONSTUH17.9, 02/12/22 11:58:00 EDT, Supply, 148.4, cm, 02/11/22 [...] Team Personnel Name: Elizabeth Barroso MD Position: [facility] Physician - Primary Care Member Role: PCP [facility]: [facility] [address]rd [place] [address]- Care Team Related Persons Name: CAIO VELASQUEZ Address: home [address] [place] [address] Name: DANIELA MADRIGAL Address: [address] [address] Name: CAIO DUNN Address: home [address] [place] [address]
--- OUTSIDE RECORDS SUMMARY | 2023-07-18 18:05 | XMS_ITS | Continuity of Care Document ---
Author Name Unknown Organization [facility] Adult Address [address] [place] [address]- Care Team Providers Care Cadd Drafter Name Role Phone Chio MUSE, Elizabeth Primary Care Physician Encounter [facility] [place] Date(s): 08/01/21 - 08/31/21 [facility] Adult [address] [place] [address]- Allergies, Adverse Reactions, Alerts Substance Reaction Severity [...]
--- OUTSIDE RECORDS SUMMARY | 2023-07-18 18:05 | XMS_ITS | Continuity of Care Document ---
Author Name Unknown Organization [facility] ter Address [address] [place] [address]- Care Team Providers Care Call Center Operator Name Role Phone Chio MUSE, Elizabeth Primary Care Physician Encounter [facility] [place] Date(s): 01/21/22 - 01/21/[address] [address]- Discharge Disposition: A-D/C Home Attending Physician: Taran Lundberg MD Admitting Physician: Taran Lundberg MD Referring Physician: Taran Lundberg MD Allergies, Adverse Reactions, Alerts No Known [...] Osteopenia(Confirmed) 2019 Active Sleep disturbance(Confirmed) 1995 Active Procedures Procedure Date Related Diagnosis Body Site Status Colonoscopy 01/21/22 Completed Vital Signs Most recent to oldest [Reference Range]: 1 2 3 Oxygen Saturation [94-100 %] 100 % (01/21/22 10:21 AM) 100 % (01/21/22 10:04 AM) 100 % (01/21/22 9:08 AM) Pulse Rate [55-90 bpm] 63 bpm (01/21/22 10:21 AM) 65 bpm (01/21/22 10:04 AM) 67 bpm (01/21/22 9:08 AM) Blood Pressure [90-138/55-84 mm Hg] 152/68mm Hg *H* (01/21/22 10:21 AM) 130/72mm Hg (01/21/22 10:04 AM) 170/72mm Hg *H* (01/21/22 9:08 AM) Respiratory Rate [16-30 br/min] 16 br/min (01/21/22 10:21 AM) 16 br/min (01/21/22 10:04 AM) 20 br/min (01/21/22 9:08 AM) Temperature [96.8-100.4 DegF] 98 DegF (01/21/22 9:08 AM) Mode of Delivery (Oxygen) Room air (01/21/22 10:21 AM) Room air (01/21/22 10:04 AM) Room air (01/21/22 9:08 AM) Blood pressure sites Arm, left (01/21/22 10:21 AM) Arm, left (01/21/22 10:04 AM) Arm, left (01/21/22 9:08 AM) Temperature Route Temporal (01/21/22 9:08 AM) Social History Social History Type Response Smoking Status Never smoker entered on: 12/30/15 Sex
--- OUTSIDE RECORDS SUMMARY | 2023-07-18 18:05 | XMS_ITS | Continuity of Care Document ---
Author Name Unknown Organization [facility] Adult Address [address] [place] [address]- Care Team Providers Care Electromechanisms Design Drafter Name Role Phone Chio MUSE, [place] Primary Care Physician Encounter [facility] Date(s): 04/15/23 - 05/15/23 [facility] Adult [address] [place] [address]- Allergies, Adverse Reactions, Alerts No Known Allergies [...] vaccine, inactivated 05/13/12 Give n SARS-CoV-2 mRNA (enoaebo-iiwq-ncgww) vax 12/23/21 Recorded SARS-CoV-2 (COVID-19) Ad26 vaccine [...] Refills, Maintenance, 02/25/23 10:38:00 EDT, [facility], 148.5, cm, 12/14/22 15:04:00 EDT, [...] Refills, Maintenance, 03/05/23 16:24:00 EDT,Tablet, [facility], Partial fill upon patient request [...] 5, Maintenance, USE TO CHECK GLUCOSE ONCE [id number], 02/12/22 11:58:00 EDT, Supply, 148.4, cm, 02/11/22 [...] Team Personnel Name: Elizabeth Barroso MD Position: [facility] Physician - Primary Care Member Role: PCP [facility]: [facility] [address]rd [place] [address]- Care Team Related Persons Name: CAIO VELASQUEZ Address: home [address] [place] [address] Name: DANIELA MADRIGAL Address: [address] [address] Name: CAIO DUNN Address: home [address] [place] [address]
[2023-07-18 18:10] LABS: IDNOW Serial# 6674DD1D; Strep A Nucleic Acid Negative (Negative)
[2023-07-18 18:11] VITALS: BP 121/66; PULSE 76; RESP 20; O2SAT 96
[2023-07-18 18:21] LABS: Alanine Aminotransferase < 5 U/L (0-31); Albumin Level 3.2 g/dL (3.5-5.0); Alkaline Phosphatase 548 U/L (39-117); Anion Gap 11 (12-20); Aspartate Amino Transferase 106 U/L (5-31); Bilirubin Total 0.4 mg/dL (0.0-1.0); Blood Urea Nitrogen 15 mg/dL (9-16); Calcium 9.6 mg/dL (8.4-10.2); Carbon Dioxide 24 mmol/L (22-29); Chloride 103 mmol/L (96-108); Creatinine Clr Calc Pharmacy 43.3; Estimated Glomerular Filt Rate > 60; Glucose Random 121 mg/dL (60-115); Magnesium 2.1 mg/dL (1.6-2.6); Potassium 4.2 mmol/L (3.3-5.1); Sodium 134 mmol/L (135-145); Total Protein 7.7 g/dL (6.5-8.0)
[2023-07-18 18:28] LABS: Troponin-I High Sensitivity 4.3 ng/L (<3.5-17.0)
[2023-07-18 18:36] LABS: Appearance Urine Clear; Color Urine Yellow; Glucose Urine UA >=1000 mg/dL (Negative); Leukocyte Esterase Urine Small (1+) (Negative); Nitrite Urine Negative (Negative); PH 6.5 (5.0-9.0); Specific Gravity - Urine >= 1.030 (1.005-1.025); UMIC TRIGGER UACC YES; Urine Blood Trace (Negative); Urine Ketones Negative (Negative); Urine Protein Negative (Neg-Trace)
[2023-07-18 18:38] LABS: Bacteria Urine None Seen (None Seen); Hyaline Casts Urine 0-2 /LPF (0-2); UACC Culture Trigger YES; WBC Urine 21-50 /HPF (0-5)
[2023-07-18 18:38] LABS: Influenza A PCR NEGATIVE (Negative); Influenza B PCR NEGATIVE (Negative); Resp Syncy Virus RNA Qual PCR NEGATIVE (Negative); SARS COV2 PCR INHOUSE NEGATIVE (Negative)
--- NOTE | 2023-07-18 18:38 | PC.NURSE ---
Pt states she was dx with kidney stones as evidenced by lab work at [facility] about a week ago. Pt states since this diagnosis, she has been having N/V accompanied with body-aches and chills. Pt is concerned she is dehydrated and would like further workup for kidney stones and pain management. Upon assessment, pt is afebrile, normotensive, and without presence of tachycardia. Pt states she is having bilateral flank pain and rates this pain a 7/10. Labs collected and care ongoing.
[2023-07-18] MEDS: iohexoL 350 MG/ML 100 ML INFUS..BTL IV (19:54)
[2023-07-18 20:00] VITALS: BP 118/61; PULSE 79; RESP 16; O2SAT 99
[2023-07-18] MEDS: Piperacillin Sodium/Tazobactam 3.375 GM in 0.9 % Sodium Chloride 50 ML IV (20:11)
[2023-07-18] MEDS: 0.9 % Sodium Chloride 1,000 ML 999 ML IV (20:11)
--- NOTE | 2023-07-18 20:21 | PC.NURSE ---
vss and up to date at this time. nsr on the manager clinical pharmacy. pt c/o no pain at this time. medications administered per provider order. resting comfortably in no apparent distress. daughter bedside. awaiting xray/CT results. pt and daughter aware of plan of care at this time. respirations even and unlabored. call bajwa placed within reach.
[2023-07-18 22:08] LABS: INTERNATIONAL NORM RATIO 1.2 (0.9-1.1); Prothrombin Time 14.1 SEC (11.1-13.3)
[2023-07-18 22:10] LABS: Partial Thromboplastin Time 41.2 SEC (26.0-36.4)
== END 2023-07-18 23:19 | disposition home or self-care (01) ==
PROVIDERS: Physician Assistant Medical; Emergency Provider Student in an Organized Health Care Education/Training Program; PCP Internal Medicine
DX: N12 Tubulo-interstitial nephritis, not specified as acute or chronic (principal); E86.0 Dehydration; R11.2 Nausea with vomiting, unspecified; R05.9 Cough, unspecified; R94.31 Abnormal electrocardiogram [ECG] [EKG]; Z20.822 Contact with and (suspected) exposure to COVID-19; Z11.52 Encounter for screening for COVID-19; Z79.899 Other long term (current) drug therapy
CPT/HCPCS: 0241U; 71046; 74177; 80053; 81001; 83735; 84484; 85025; 85610; 85730; 87086; 87651; 93005; 96361; 96365; 99284; 99285; J2543; Q9967

== ENCOUNTER 2023-07-22 13:53 | Emergency (ER) | payer MEDICARE, MEDICAID, SELFPAY ==
--- NOTE | ~2023-07-22 | US_ITS ---
EXAMINATION: US VENOUS ULTRASOUND WITH DOPPLER LOWER EXTREMITY, BILATERAL CLINICAL INFORMATION: Pain after falling COMPARISON: None available. TECHNIQUE: Ultrasound of the deep veins is performed from the hip to the calf with compression sonography and color and pulse Doppler assessment. Spectral analysis with color-flow imaging is performed. FINDINGS: RIGHT: There is normal venous compression and respiratory variation and augmented flow. The visualized common femoral vein, superficial femoral vein, profunda femoral vein, popliteal vein, and the trifurcation region shows no evidence of deep venous thrombosis. There is no significant popliteal fossa cyst. LEFT: There is normal venous compression and respiratory variation and augmented flow. The visualized common femoral vein, superficial femoral vein, profunda femoral vein, popliteal vein, and the trifurcation region shows no evidence of deep venous thrombosis. There is no significant popliteal fossa cyst. If the patient's symptoms persist, followup ultrasound in 5 days 7 days might be of value to exclude proximal propagation from a non-visualized calf vein. US/US venous duplex LE BI IMPRESSION: No DVT demonstrated in the right or left lower extremity.
[2023-07-22 14:20] VITALS: BP 133/61; PULSE 77; RESP 17; TEMP 36.4; O2SAT 99; BMI 23.3
--- NOTE | 2023-07-22 15:14 | ED_ITS ---
HPI - Extremity Problem General Chief complaint: Extremity Problem Stated complaint: R Side Pain Radiating To Leg Time Seen by Provider: 07/22/23 14:45 Source: patient, family, RN notes reviewed and old records reviewed Mode of arrival: ambulatory History of Present Illness HPI Narrative: 72-year-old female with a past medical history of diabetes, recently diagnosed with pyelonephritis in our ED on 07/18/23 currently on Cefdinir, present the ED complaining of acute on chronic bilateral lower extremity pain > right x months. Denies recent injury/trauma or fall. Reports pain radiates from upper thigh to calf. Denies injury, trauma/fall, numbness, tingling, weakness, incontinence/retention, fever, abdominal pain, hematuria. Related Data Previous Rx's Medication Instructions Recorded cefdinir 300 mg capsule 300 mg PO BID 7 days #14 caps 07/18/23 acetaminophen 500 mg tablet 500 mg PO Q6H PRN fever or pain 07/22/23 (Tylenol Extra Strength) #14 tabs cyclobenzaprine 5 mg tablet 5 mg PO Q8H PRN pain (scale score 07/22/23 7-10) 5 days #14 tabs lidocaine 5 % topical patch 1 patch topical DAILY PRN pain #30 07/22/23 (Lidoderm) ea naproxen 500 mg tablet 500 mg PO BID PRN pain 10 days #20 07/22/23 tabs Allergies Allergy/AdvReac Type Severity Reaction Status Date / Time No Known Allergies Allergy Unverified 05/23/20 16:06 Review of Systems Review of Systems: Constitutional: No Fever, No Chills ENT/Mouth: No Ear Pain, No Nasal Congestion, No sore throat, No Rhinorrhea, No Swallowing Difficulty Cardiovascular: No Chest Pain, No SOB Respiratory: No Cough Gastrointestinal: No Nausea, No Vomiting, No Diarrhea, No Constipation, No Abdominal pain Genitourinary: No Dysuria, No Urinary Frequency, No Hematuria, No Urinary Incontinence/retention, No Flank Pain Musculoskeletal: + joint pain, No Myalgias, No Joint Swelling Skin: No Skin Lesions, No rash Neuro: No Weakness, No Numbness, No Paresthesias Yes all other systems are reviewed and are negative Constitutional: Constitutional: Reports as per [facility] Past Medical History Attestation statement: The following information was validated with the patient. Source: old records reviewed Medical History Diabetes mellitus, type 2 Social History Social History Advance Directives: No Physical Exam Vital Signs: Vital Signs: Last Vital Signs Temp 97.6 F 07/22/23 14:20 Pulse 77 07/22/23 14:20 Resp 17 07/22/23 14:20 BP 133/61 07/22/23 14:20 Pulse Ox 99 07/22/23 14:20 O2 Del Method Room Air 07/22/23 14:20 BMI result Body Mass Index 23.3 Const: General: cooperative, healthy appearing and no acute distress Orientation/consciousness: patient oriented x3 Limitations: no limitations HEENT: Head: Yes normal to inspection and Yes atraumatic Ears: hearing grossly normal bilaterally General nose exam: Normal external nose present Face and sinus: Yes normal facial exam Eyes: General: appearance normal, both eyes and all related structures EOM: EOMs intact bilaterally Neck: Neck: Yes normal visual inspection and Yes no meningeal signs Resp: Effort & Inspection: normal respiratory effort and no respiratory distress Cardio: Rate: regular rate Peripheral pulses: Peripheral pulses 2+ throughout GI: Inspection: Yes normal to inspection Palpation (GI): Soft to palpation, nontender, no guarding and not rigid : General: Yes no CVA tenderness Back/Spine/Pelvis: Other: No midline cervical/thoracic/lumbar spinous tenderness/step-off or deformity. Pain not reproducible on exam. No rash, erythema or ecchymosis. No CVAT Back: no CVA tenderness Skin: Rashes: no rashes Wounds: no wounds Neuro: Other: Strength intact throughout. No saddle anesthesia. Sensation intact to light touch. Neurovascular intact distally General: patient oriented x3, gait normal, tone normal, moves all extremities, no meningeal signs and no focal motor deficits Cranial nerves: Yes CN's II-XII intact bilaterally Gait exam (Neuro): Normal gait present Extrem: Other: Pelvis stable. Hips nontender with full range of motion intact. Right groin with mild tenderness to palpation. No pitting edema bilaterally. No palpable hernia. Right calf with noted tenderness. Neurovascularly intact bilaterally. No lower extremity erythema/crepitus or ecchymosis. General: Yes normal to inspection Course Course Course Narrative: US venous duplex LE BI IMPRESSION: No DVT demonstrated in the right or left lower extremity. Results discussed with patient including worrisome signs and symptoms and strict return precautions, and when to return to the emergency department. They dave balized understanding and feel safe for discharge at this time. Medications Administered Discontinued Medications Generic Name Dose Route Start Last Admin Trade Name Ethel PRN Reason Stop Dose Admin Cyclobenzaprine HCl 5 mg 07/22/23 16:46 07/22/23 16:56 Cyclobenzaprine Hcl 5 Mg Tablet PO 07/22/23 16:47 5 mg ONCE ONE Administration Ketorolac Tromethamine 30 mg 07/22/23 16:46 07/22/23 16:55 Ketorolac Tromethamine 30 Mg/Ml Vial IM 07/22/23 16:47 30 mg ONCE ONE Administration Medical Decision Making Medical Decision Making [facility] Narrative: 72-year-old female with a past medical history of diabetes, recently diagnosed with pyelonephritis in our ED on 07/18/23 currently on Cefdinir, present the ED complaining of acute on chronic bilateral lower extremity pain > right x months. On exam vital signs stable, NAD, nontoxic appearing, no midline spinous tenderness throughout. Back pain not reproducible. Right groin with noted tenderness and right calf with tenderness. No deformity. Hip ROM intact. Neurovascular intact distally. No pitting edema. Concern for osteoarthritis vs groin strain vs sciatica/MSK pain/strain vs ?Hernia although patient with CT on 07/18/23 that did not show any acute pelvic findings. Unlikely renal stone or appendicitis/diverticulitis. Compartments soft Plan: Venous duplex ultrasound, pain control Please refer to course for remaining clinical decision making, interpretation of labs/imaging results, and discussions with consultants and/or family members. Differential Diagnosis Differential Diagnoses: The differential diagnosis associated with the presentation includes As above Admission/Observation Consideration of admission/observation: Escalation of care including admission/observation considered Lab Data [facility] Lab Attestation statement: I reviewed the patient's lab results. Radiology Impression Discussion of test interpretation with radiology: I have reviewed the radiologist's reading. External Record Review External record reviewed: Inpatient record, Office record, Outpatient record, Prior outpatient labs, Prior outpatient radiology, Primary care record and Outs lj ED record Tests considered The following testing was considered but not selected: As above Discharge Plan Discharge Clinical Impression: Chronic pain of right groin, Pain of right calf Patient Disposition: Home, Self-Care Instructions: Leg Pain (ED), Pelvic Pain (ED) Additional Instructions: Your ultrasound was negative for blood clot. Continue taking previously prescribed antibiotic Your pain is likely musculoskeletal Flexeril is a muscle relaxer, take at night as it makes you drowsy, do not drive, drink alcohol, or operate machinery while taking it Naproxen as an anti-inflammatory / pain medication, take with food Lidoderm patches are numbing patches, apply to painful area In addition take Tylenol at home If symptoms persist or worsen, pain becomes unbearable, you developed urinary retention or incontinence, or weakness return to the ED Prescriptions: New acetaminophen [Tylenol Extra Strength] 500 mg tablet 500 mg PO Q6H PRN (Reason: fever or pain) Qty: 14 0RF lidocaine [Lidoderm] 5 % adhesive patch,medicated 1 patch topical DAILY MDD remove after 12 hours PRN (Reason: pain) Qty: 30 0RF Rx Instructions: leave on most painful area for up to 12 hrs naproxen 500 mg tablet 500 mg PO BID PRN (Reason: pain) 10 Days Qty: 20 0RF cyclobenzaprine 5 mg tablet 5 mg PO Q8H PRN (Reason: pain (scale score 7-10)) 5 Days Qty: 14 0RF No Action cefdinir 300 mg capsule 300 mg PO BID 7 Days Qty: 14 0RF Referrals: Elizabeth Sterling MD [Primary Care Provider] - Interventions: ED Discharge Assessment Last Done: 07/22/23 17:01 Discharge Date/Time: 07/22/23 17:01
[2023-07-22] MEDS: Ketorolac Tromethamine 30 MG/ML VIAL IM (16:55)
[2023-07-22] MEDS: Cyclobenzaprine HCl 5 MG TABLET PO (16:56)
== END 2023-07-22 17:01 | disposition home or self-care (01) ==
PROVIDERS: Emergency Provider Emergency Medicine; PCP Internal Medicine
DX: M79.604 Pain in right leg (principal); R10.31 Right lower quadrant pain; R60.0 Localized edema; M79.605 Pain in left leg; M79.661 Pain in right lower leg; Z79.899 Other long term (current) drug therapy
CPT/HCPCS: 93970; 96372; 99283; 99284; J1885

== ENCOUNTER 2023-09-16 22:59 | Emergency (ER) | payer MEDICARE, MEDICAID, SELFPAY ==
[2023-09-16 23:08] VITALS: BP 155/70; PULSE 87; RESP 20; TEMP 37.2; O2SAT 97; BMI 21.9
[2023-09-16 23:39] VITALS: BP 145/70; PULSE 82; RESP 17; TEMP 36.8; O2SAT 99
--- NOTE | 2023-09-16 23:59 | ED_ITS ---
HPI - Skin/Abscess/Foreign Bdy General Chief complaint: Skin/Abscess/Foreign Body Stated complaint: cyst in groin area ? Time Seen by Provider: 09/16/23 23:40 Source: patient Mode of arrival: ambulatory Limitations: no limitations History of Present Illness HPI narrative: Patient is a 72-year-old female presenting to the emergency department with complaint of pain, redness and swelling to mons pubis for the past 3 weeks. Denies fevers/sweats/chills. Denies discharge or drainage from the area. Denies radiation of pain. States she has been applying ice to the area. She denies history of diabetes. complaint: abscess/boil Onset (ago): week(s) Tetanus up to date: unsure Location: genitals (mons pubis) Severity scale (1-10): 6 Quality: aching Pain Consistency: constant Exacerbating factors: other (palpation) Context: none Associated symptoms: denies other symptoms Treatments prior to arrival: other (ice) Related Data Previous Rx's Medication Instructions Recorded cefdinir 300 mg capsule 300 mg PO BID 7 days #14 caps 07/18/23 acetaminophen 500 mg tablet 500 mg PO Q6H PRN fever or pain 07/22/23 (Tylenol Extra Strength) #14 tabs cyclobenzaprine 5 mg tablet 5 mg PO Q8H PRN pain (scale score 07/22/23 7-10) 5 days #14 tabs lidocaine 5 % topical patch 1 patch topical DAILY PRN pain #30 07/22/23 (Lidoderm) ea naproxen 500 mg tablet 500 mg PO BID PRN pain 10 days #20 07/22/23 tabs doxycycline hyclate 100 mg capsule 100 mg PO BID #14 caps 09/17/23 Allergies Allergy/AdvReac Type Severity Reaction Status Date / Time No Known Allergies Allergy Verified 09/16/23 23:10 Review of Systems 2 Review of Systems: As per HPI. Yes all other systems are reviewed and are negative Constitutional: Constitutional: Reports as per HPI [facility] Past Medical History Onset Date is defined in the Problem List Problems that require an onset date and time if occurred within 24 hrs of arrival to the ED Aortic Dissection and Rupture; Neurologic impairment; Cardiopulmonary Arrest; Endotracheal Intubation; Insertion or Replacement of Mechanical Circulatory Assist Device Medical History Diabetes mellitus, type 2 Social History Social History Advance Directives: No Advance Directives Information Provided: Yes Physical Exam 2 Vital Signs: Vital Signs: Last Vital Signs Temp 98.2 F 09/16/23 23:39 Pulse 82 09/16/23 23:39 Resp 17 09/16/23 23:39 BP 145/70 H 09/16/23 23:39 Pulse Ox 99 09/16/23 23:39 O2 Del Method Room Air 09/16/23 23:39 BMI result Body Mass Index 21.9 Vital signs have been reviewed and appear to be correct. Blood pressure mildly elevated. Heart rate normal. Respiratory rate normal. Temperature normal. Oxygen saturation normal. Const: General: cooperative, healthy appearing and no acute distress O rientation/consciousness: oriented to person, oriented to place, oriented to time and patient oriented x3 Limitations: no limitations HEENT: Head: Yes normocephalic and Yes atraumatic Ears: external ears normal General nose exam: Normal external nose present Face and sinus: Yes face symmetric Mouth: oropharynx normal and moist mucous membranes Throat: Yes uvula midline Eyes: Pupils: Equal, round and reactive pupils present Neck: Neck: Yes normal visual inspection and Yes supple Resp: Effort & Inspection: normal respiratory effort and able to speak in complete sentences Auscultation: clear to auscultation bilaterally Cardio: Rate: regular rate Rhythm: regular rhythm Heart sounds: S1 normal heart sound present and S2 normal heart sound present GI: Palpation (GI): Soft to palpation and nontender Auscultation: n ormoactive bowel sounds : General: Yes no CVA tenderness Back/Spine/Pelvis: Back: no CVA tenderness Skin: General skin exam: elasticity normal and turgor normal Full body images: 1. localized erythema, induration, warmth to right side of mons pubis, no fluctuance or drainage Neuro: General: oriented to person, oriented to place, oriented to time, patient oriented x3, moves all extremities, no focal motor deficits and CN's II- XI intact bilaterally Cranial nerves: Yes Equal, round and reactive pupils present Cognition (Neuro): normal cognition Extrem: General: Yes full ROM, Yes no pedal edema and Yes no calf tenderness Psych: Mental Status: mental status grossly normal Affect: normal affect Thought process: Normal thought process present Medical Decision Making Medical Decision Making [facility] Narrative: Patient is a 72-year-old female presenting to the emergency department with complaint of pain, redness and swelling to mons pubis for the past 3 weeks. On exam patient is awake, A+Ox3, VS WNL, afebrile, normal neurological exam without focal deficits, physical exam findings as above. Given reported symptoms and physical exam findings, initial differential includes abscess vs cellulitis. Given that area is indurated and not fluctuant, incision and drainage is not indicated at this time. Will prescribe course of doxycycline, advised patient to avoid using ice and to apply warm compresses several timed daily. Advised patient not to attempt to drain or squeeze the area. Instructed patient to inspect the area daily for signs of worsening infection and return if this occurs. Patient has an appointment with PCP on 09/21, instructed her to return here sooner if signs of infection occur. Patient verbalized understanding of and agreement with plan of care. Differential Diagnosis Differential Diagnoses: The differential diagnosis associated with the presentation includes As per [facility] External Record Review External record reviewed: Inpatient record, Office record and Outpatient record Prescription Management I considered prescription management with: Antibiotic Discharge Plan Discharge Clinical Impression: Abscess of skin or subcutaneous tissue Qualifiers: Site of cutaneous abscess: other site Qualified Code(s): L02.818 - Cutaneous abscess of other sites Patient Disposition: Home, Self-Care Instructions: Abscess (ED), Abscess Follow-up (ED) Additional Instructions: You were evaluated in the ER for an abscess. Please keep the area surrounding the abscess clean and dry. You were given a prescription for antibiotics, please take the antibiotics as directed for the full course of the medication. You should also apply warm compresses several times daily. Do not attempt to squeeze or pop the area as this can worsen the infection. You should perform a skin check of the area daily. If the abscess progresses you may have to have the abscess incised and drained. You can use Tylenol or ibuprofen per package directions as needed for pain. If necessary, you can alternate these medications so that you take one medication every 3 hours. For instance, at noon take ibuprofen, then at 3:00 p.m. take Tylenol, then at 6:00 p.m. take ibuprofen. Please keep your appointment with your primary care physician on 09/21. Return to the emergency department if you experience fevers greater than 100.4? F, increased in area of redness or swelling, increasing amount of discharge from the area, increased tenderness around the area, or any other concerning symptoms. Prescriptions: New doxycycline hyclate 100 mg capsule 100 mg PO BID Qty: 14 0RF No Action cefdinir 300 mg capsule 300 mg PO BID 7 Days Qty: 14 0RF acetaminophen [Tylenol Extra Strength] 500 mg tablet 500 mg PO Q6H PRN (Reason: fever or pain) Qty: 14 0RF lidocaine [Lidoderm] 5 % adhesive patch,medicated 1 patch topical DAILY MDD remove after 12 hours PRN (Reason: pain) Qty: 30 0RF Rx Instructions: leave on most painful area for up to 12 hrs naproxen 500 mg tablet 500 mg PO BID PRN (Reason: pain) 10 Days Qty: 20 0RF cyclobenzaprine 5 mg tablet 5 mg PO Q8H PRN (Reason: pain (scale score 7-10)) 5 Days Qty: 14 0RF Referrals: [facility] [place] General Surgeons [Provider Group]
[2023-09-17] MEDS: Doxycycline Monohydrate 100 MG CAPSULE PO (00:37)
== END 2023-09-17 00:42 | disposition home or self-care (01) ==
PROVIDERS: Emergency Provider Student in an Organized Health Care Education/Training Program
DX: L02.818 Cutaneous abscess of other sites (principal); E11.9 Type 2 diabetes mellitus without complications
CPT/HCPCS: 99283

== ENCOUNTER 2024-01-18 08:55 | Outpatient (REF) | payer MEDICARE, MEDICAID, SELFPAY | END 2024-01-18 08:56 | disposition home or self-care (01) | LOC: HO.MAMMO 08:55 | PROVIDERS: PCP Internal Medicine; Visit Provider Internal Medicine | DX: Z12.31 Encounter for screening mammogram for malignant neoplasm of breast (principal) | CPT/HCPCS: 77063; 77067 ==

== ENCOUNTER → 2024-01-18 09:30 | Outpatient (BNV) | payer MEDICARE, MEDICAID, SELFPAY | PROVIDERS: PCP Internal Medicine; Visit Provider Radiology Diagnostic Radiology | DX: Z12.31 Encounter for screening mammogram for malignant neoplasm of breast (principal) | CPT/HCPCS: 77063; 77067 ==

== ENCOUNTER 2025-02-12 09:04 | Outpatient (REF) | payer MEDICARE, MEDICAID, SELFPAY ==
--- OUTSIDE RECORDS SUMMARY | 2025-02-12 09:28 | XMS_ITS | Patient Health Record ---
Author Organization [facility] Address [address] [place] [address] Care Team Providers Care [employer] Name Role Phone GÉNESIS KUSUM MARTINEZ Primary Care Provider Celi ian Toney Mylene Unavailable [phone] Reason For Referral No Information Medications Medication SIG (Take, Route, Frequency, Duration) Notes Start Date End Date Status Lisinopril-hydroCHLOROthiaz lj 20-12.5 MG TAKE ONE TABLET BY MOUTH EVERY DAY Oral for 30 Active Halobetasol Propionate 0.05 % 1 application to affected area Externally Twice a day for 30 days 05/30/2019 Active Atorvastatin Calcium 40 MG TAKE ONE TABL ET BY MOUTH EVERY DAY Oral for 30 Active Social History Tobacco Use: Social History Observation Description Date Details (start date - stop date) Never Smoker NA - NA Tobacco Use/Smoking Question Answer Notes Are you a nonsmoker Alcohol Screen (Audit-C) Question Answer Notes Did you have a drink containing alcohol in the p ast year? No Points 0 Interpretation Negative Section Notes: From [facility]. [employer] [place] From [facility]. [employer] [place] From [facility]. 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) Lichen sclerosus et atrophicus (L90.0) Active confirmed early Plan Of Treatment Pending Test Test Name Order Date Bone Density 05/12/2017 Bone Density 05/30/2019 THIN PREP,HPV,PATTY IF HPV+ (>29YR)(SCRN) 05/12/2017 MM Digital Mammo Screening 05/30/2019 MM Digital Mammo Screening 05/12/2017 Insurance Providers Payer Name Payer Address Payer Phone Subscriber Number Group Number Insured Name Patient Relationship to Insured Coverage Start Date Coverage End Date MEDICARE [address] [employer] [place] [id number] MAN, RON Self - patient is the insured Medical (General) History Medical History History ICD Code Lichen sclerosus et atrophicus L90.0 Surgical History Surgery Date(Month/Year) Colonoscopy Hospitalization History Reason Date(Month/Year) 4 Vaginal Deliveries
== END 2025-02-12 09:05 | disposition home or self-care (01) ==
LOC: HO.MAMMO 09:04
PROVIDERS: PCP Internal Medicine; Visit Provider Internal Medicine
DX: Z12.31 Encounter for screening mammogram for malignant neoplasm of breast (principal)
CPT/HCPCS: 77063; 77067

== ENCOUNTER → 2025-02-12 10:45 | Outpatient (BNV) | payer MEDICARE, MEDICAID, SELFPAY | PROVIDERS: PCP Internal Medicine; Visit Provider Internal Medicine | DX: Z12.31 Encounter for screening mammogram for malignant neoplasm of breast (principal) | CPT/HCPCS: 77063; 77067 ==